=== PATIENT | female | born 1970 | race Caucasian/White ===

== ENCOUNTER 2024-02-09 08:22 | Outpatient (OUT) | payer OTHER, SELFPAY ==
--- NOTE | 2024-02-09 08:25 | MM_ITS ---
Patient Name: CHYNA ASENCIO MR#: [id number] : 1970 Exam Date: 02/09/2024 Ordering Doctor: Shaikh Mahi Roger . RADIOLOGY REPORT PROCEDURE: MM TOMOSYNTHESIS SCREENING BI COMPARISON: MG MAMM SCREEN 3D PAGE CAD, 11/15/2021. MG MAMM SCREEN 3D PAGE CAD, 12/02/2022. INDICATIONS: Screening Calculator Name NCI Breast Cancer Risk Assessment Tool 5 Year Breast Cancer Risk 0.80% Lifetime Breast Cancer Risk 6.90% Personal Breast Cancer No Personal Ovarian Cancer No Treatments None Family Cancers Grandmother-maternal with breast cancer at age ~50; Grandfather-paternal with lung cancer at age ~60. LOCATION: [facility] BREAST COMPOSITION: The breasts are extremely dense, which lowers the sensitivity of mammography. FINDINGS: DIAGNOSTIC CATEGORY 2--BENIGN FINDING. NO CHANGE FROM COMPARISON. Scattered benign-appearing calcifications are present. Scattered benign-appearing lymph nodes are present. RIGHT BREAST: No significant suspicious finding. Linear scar marker upper outer quadrant LEFT BREAST: No significant suspicious finding. RECOMMENDATIONS: ROUTINE MAMMOGRAM AND CLINICAL EVALUATION IN 12 MONTHS. PLEASE NOTE: A NORMAL MAMMOGRAM DOES NOT EXCLUDE THE POSSIBILITY OF BREAST CANCER. A CLINICALLY SUSPICIOUS PALPABLE LUMP SHOULD BE BIOPSIED. Dictated by: Joseph Couch MD on 02/09/2024 at 12:53 Approved by: Joseph Couch MD on 02/09/2024 at 12:54
== END 2024-02-09 08:23 | disposition home or self-care (01) ==
LOC: MAMMO 08:22
PROVIDERS: PCP Internal Medicine; Visit Provider Internal Medicine
DX: Z12.31 Encounter for screening mammogram for malignant neoplasm of breast (principal); Z80.3 Family history of malignant neoplasm of breast; Z80.1 Family history of malignant neoplasm of trachea, bronchus and lung
CPT/HCPCS: 77063; 77067

== ENCOUNTER 2024-03-06 08:10 | Outpatient (OUT) | payer OTHER, SELFPAY ==
[2024-03-06 08:37] LABS: Basophils Absolute Auto 0.1 10^3/uL (0.0-0.1); Basophils Percent Auto 1.5 % (0.2-2.0); Eosinophils Absolute Auto 0.3 10^3/uL (0.0-0.7); Eosinophils Percent Auto 5.3 % (0.9-7.0); Hematocrit 40.6 % (36.0-48.0); Hemoglobin 13.5 g/dL (12.0-16.0); Immature Granulocytes Abs Auto 0.01 10^3/uL (0.00-0.03); Immature Granulocytes Pct Auto 0.2 % (0.0-0.5); Lymphocytes Absolute Auto 2.1 10^3/uL (1.2-3.8); Lymphocytes Percent Auto 35.4 % (20.5-60.0); Mean Corpuscular HGB Conc 33.3 g/dL (29.9-35.2); Mean Corpuscular Volume 93.1 fL (81.0-99.0); Mean Platelet Volume 9.6 fL (9.5-13.5); Monocytes Absolute Auto 0.4 10^3/uL (0.3-0.8); Neutrophils Absolute Auto 3.1 10^3/uL (1.4-6.5); Neutrophils Percent Auto 50.6 % (43.0-75.0); Platelet Count 383 10^3/uL (150-450); Red Blood Count 4.36 10^6/uL (4.20-5.40); Red Cell Distribution Width 13.2 % (11.0-15.0)
[2024-03-06 09:14] LABS: Alanine Aminotransferase 22 U/L (14-59); Albumin Globulin Ratio 1.4; Albumin Level 4.2 g/dL (3.4-5.0); Alkaline Phosphatase 91 U/L (46-116); Anion Gap 13.3; Aspartate Amino Transferase 12 U/L (15-37); BUN Creatinine Ratio 26.4; Bilirubin Total 0.5 mg/dL (0.2-1.0); Calcium 9.1 mg/dL (8.5-10.1); Carbon Dioxide 26.9 mmol/L (21.0-32.0); Chloride 104 mmol/L (98-107); Cholesterol 184 mg/dL (<=200); Estimated GFR (African America >60 (>=60); Estimated GFR (Non-African Ame >60 (>=60); Globulin 2.9 g/dL; Glucose 110 mg/dL (74-106); HDL Cholesterol 92 mg/dL (40-60); Potassium 4.2 mmol/L (3.5-5.1); Sodium 140 mmol/L (136-145); Thyroid Stimulating Hormone 1.194 uIU/mL (0.358-3.740); Total Protein 7.1 g/dL (6.4-8.2); Triglycerides 51 mg/dL (<=150); VLDL CHOLESTEROL 10.2 mg/dL
== END 2024-03-06 08:11 | disposition home or self-care (01) ==
LOC: LAB 08:12
PROVIDERS: PCP Family Medicine; Visit Provider Family Medicine
DX: Z00.00 Encounter for general adult medical examination without abnormal findings (principal)
CPT/HCPCS: 36415; 80053; 80061; 84443; 85025

== ENCOUNTER 2025-02-21 09:56 | Outpatient (OUT) | payer BC, SELFPAY ==
--- OUTSIDE RECORDS SUMMARY | 2025-02-21 10:13 | XMS_ITS | CCD ---
Author Organization [facility] Care Team Providers Care Harnessmaker Name Role Phone SKYLER Mike Attending Provider Denise Mike Attending Unavailable Denise Mike Admitting Unavailable Fawwad, Aggarwal Primary Care Unavailable DR IZAIAH DOWD Consulting Unavailable FAWWAD, AGGARWAL H Admitting Unavailable FAWWAD, AGGARWAL H Primary Care Unavailable FAWWAD, AGGARWAL H Attending Unavailable FAWWAD, AGGARWAL H Consulting Unavailable FAWWAD, AGGARWAL H Attending Unavailable FAWWAD, AGGARWAL H Admitting Unavailable FAWWAD, AGGARWAL H Primary Care Unavailable FAWWAD, AGGARWAL H Consulting Unavailable FAWWAD, AGGARWAL H Admitting Unavailable FAWWAD, AGGARWAL H Primary Care Unavailable FAWWAD, AGGARWAL H Attending Unavailable FAWWAD, AGGARWAL H Admitting Unavailable FAWWAD, AGGARWAL H Primary Care Unavailable FAWWAD, AGGARWAL H Attending Unavailable DEMARCO SOOD Attending Unavailable WARNER MORALES Referring Unavailable MORALESWARNER Attending Unavailable KRUPA BATISTA Attending Unavailable MORALES, WARNER T Referring Unavailable KRUPA BATISTA Attending Unavailable MORALES, WARNER T Referring Unavailable ZHANNA GRAJEDA Attending Unavailable MORALES, WARNER T Referring Unavailable ZHANNA GRAJEDA Attending Unavailable MORALES, WARNER T Referring Unavailable MICAH CONN Attending Unavailable MORALES, WARNER T Referring Unavailable MORALES, WARNER T Attending Unavailable MORALES, WARNER T Attending Unavailable SAMANTHA JUSTIN Attending Unavailable CARMEN, WARNER T Referring Unavailable SAMANTHA JUSTIN Attending Unavailable MORALES, WARNER T Referring Unavailable CAR FARRIS Attending Unavailable SAMANTHA JUSTIN Attending Unavailable MORALES, WARNER T Referring Unavailable ZHANNA GRAJEDA Attending Unavailable WARNER MORALES Referring Unavailable Allergies Allergy Classification Reported Allergen(s) Allergy Type Date of Onset Reaction(s) Facility (3 sources) Albuterol Drug Allergy 4 Unknown, [facility] (1 source) Penicillin V Drug Allergy Unknown [employer] Other (1 source) Albuterol Drug Allergy 2 [facility] (2 sources) Penicillins Allergy to substance 4 [facility] Medications Current Medications Medication Drug Class(es) Dates Sig (Normalized) Sig (Original) fluticasone propionate 0.05 mg/actuat metered dose nasal spray (6 sources) Corticosteroid Start: 02-28-2024 End: 02-29-2024 take 1 spray(s) nasal route once daily Fluticasone Propionate (Flonase Allergy Relief) 50 mcg/actuation spray,suspension Active 1 SPRAY INTRANASAL Daily February 28, 2024 12:00am administer into each nostril Fluticasone Prop ionate Active Flonase Active Fluticasone Propionate (Flovent Hfa) 220 mcg/actuation HFA aerosol inhaler (1 source) Start: 10-22-2024 take 1 puff(s) by inhalation twice daily Fluticasone Propionate (Flovent Hfa) 220 mcg/actuation HFA aerosol inhaler Active 1 PUFF INHALATION Twice daily October 22, 2024 12:00am 200 actuat ipratropium bromide 0.017 mg/actuat metered dose inhaler (1 source) Anticholinergic Start: 10-22-2024 take 1 puff(s) by inhalation every eight hours Ipratropium Keller (Atrovent Hfa) 17 mcg/actuation HFA aerosol inhaler Active 2 PUFF INHALATION Every 8 hours October 22, 2024 12:00am loratadine 10 mg oral tablet (3 sources) Start: 02-28-2024 take 1 tablet by mouth once daily Loratadine (Claritin) 10 mg tablet Active 10 MG PO Daily February 28, 2024 12:00am Claritin Active sulfamethoxazole 800 mg / trimethoprim 160 mg oral tablet (1 source) Dihydrofolate Reductase Inhibitor Antibacterial, Sulfonamide Antimicrobial Start: 10-22-2024 take 1 tablet by mouth twice daily Sulfamethoxazole-Trimethoprim 800-160 mg tablet Active 1 TAB PO Twice daily October 22, 2024 12:00am Completed/Discontinued Medications Medication Drug Class(es) Dates Sig (Normalized) Sig (Original) Toradol 30 mg/ml (1 source) Start: 06-27-2022 Toradol 30 mg/ml May, 60 mg Problems Problem Classification Problem Date Documented Date Episodic/Chronic Abdominal pain (1 source) Right lower quadrant pain Episodic Asthma (4 sources) Exercise induced bronchospasm; Translations: [EXERCISE INDUCED BRONCHOSPASM] Onset: 12-09-2021 Chronic Genitourinary symptoms and ill-defined conditions (3 sources) Dysuria; Translations: [Dysuria] Onset: 06-27-2022 Episodic Menopausal disorders (3 sources) Disorder associated with menstruation AND/OR menopause; Translations: [Unspecified menopausal and perimenopausal disorder] 02-29-2024 Chronic Other non-traumatic joint disorders (5 sources) Pain in left shoulder; Translations: [PAIN IN LEFT SHOULDER] Onset: 12-05-2022 Episodic Other screening for suspected conditions (not mental disorders or infectious disease) (7 sources) Encounter for screening mammogram for malignant neoplasm of breast; Translations: [Patient encounter status] Onset: 12-02-2022 Episodic Residual codes; unclassified (1 source) Family history of malignant neoplasm of breast; Translations: [FAMILY HX MALIG NEOPLASM OF BREAST] Onset: 12-08-2022 Episodic Residual codes; unclassified (1 source) Family history of malignant neoplasm of trachea, bronchus and lung; Translations: [FAM HX MALIG NEOPLSM TRACH BRON LNG] Onset: 12-08-2022 Episodic Results Test Name Value Interpretation Reference Range Facil ity MG MAMM SCREEN 3D PAGE CADon 12-02-2022 MG MAMM SCREEN 3D PAGE CAD Patient: RAINE ASENCIO Exam Date: 12/02/2022 : 1970 Gender:F Ordering : SHAIKH Mahi DELGADILLO . Admission #: [id number] Family : Order #: [id number] CLICK HERE TO VIEW EXAM RADIOLOGY REPORT PROCEDURE: MAMMOGRAM SCREENING 3D BILATERAL CAD COMPARISON: MG MAMM SCREEN 3D PAGE CAD, 11/15/2021. MG BREAST LOCAL MAMM GUIDE RT, 10/10/2019. MG STEREO CORE NDL W CLIP RT, 07/12/2019. MG MAMM PAGE DIAG W CAD, 06/25/2019. INDICATIONS: Screening mammography Calculator Name NCI Breast Cancer Risk Assessment Tool 5 Year Breast Cancer Risk 0.70% Lifetime Breast Cancer Risk 7.00% Personal Breast Cancer No Personal Ovarian Cancer No Treatments None Family Cancers Grandmother-matern al with breast cancer at age 50; Grandfather-patern al with lung cancer at age 60. LOCATION: [facility] BREAST COMPOSITION: Extremely dense, which lowers the sensitivity of mammography. FINDINGS: DIAGNOSTIC CATEGORY 2--BENIGN FINDING: RIGHT BREAST: No significant suspicious finding. Scattered benign-appearing calcifications are present. No significant change has occurred. LEFT BREAST: No significant suspicious finding. Scattered benign-appearing calcifications are present. Scattered benign-appearing lymph nodes are present. No significant change has occurred. RECOMMENDATIONS: ROUTINE MAMMOGRAM AND CLINICAL EVALUATION IN 12 MONTHS. PLEASE NOTE: A NORMAL MAMMOGRAM DOES NOT EXCLUDE THE POSSIBILITY OF BREAST CANCER. A CLINICALLY SUSPICIOUS PALPABLE LUMP SHOULD BE BIOPSIED. Dictated by: Izaiah Dowd M.D. on 12/05/2022 at 11:51 Approved by: Izaiah Dowd M.D. on 12/05/2022 at 11:56 Normal [facility] Urinalysis - AUTOMATEDon Appearance (U) clear [employer] Other Bilirubin Ql (U) Negative [employer] Other Color (U) yellow [employer] Other Glucose Ql (U) Negative [employer] Other Hemoglobin Ql (U) Negative [employer] Other Ketones Ql (U) Negative [employer] Other Leukocyte esterase Test strip Ql (U) Negative [employer] Other Nitrite Ql (U) Negative [employer] Other pH (U) 6.0 [pH] [employer] Other Protein Ql (U) Negative [employer] Other Specific gravity (U) [Rel density] 1.010 [facility] [facility] [employer] Other Urobilinogen (U) [Mass/Vol] 0.2 mg/dL [employer] Other Urinalysis - AUTOMATED [employer] [facility] [employer] Other Urine Cultureon 06-27-2022 Bacteria identified Cx Nom (U) Reason for Exam Dysuria Urine No Growth 2 Days PERFORMED BY: [place] [address] PATHOLOGIST [employer]WR[employer] GRACE FRIEDMAN M.D. Normal [facility] Comment on above: Performed By: #### C UU #### [address] Vital Signs Date Time Vital Sign Value Performing Clinician Facility 10-22-2024 09:48-0400 Body height 163.83 cm [facility] 10-22-2024 09:48-0400 Body mass index (BMI) [Ratio] 24.5 kg/m2 [facility] 10-22-2024 09:48-0400 Body temperature 98.3 [degF] [place] 10-22-2024 09:48-0400 Body weight 65.77 kg [facility] 10-22-2024 09:48-0400 Diastolic blood pressure 73 mm[Hg] [facility] 10-22-2024 09:48-0400 Heart rate 79 /min [facility] 10-22-2024 09:48-0400 Systolic blood pressure 119 mm[Hg] [facility] 02-29-2024 08:31-0400 Body height 163.83 cm [facility] 02-29-2024 08:31-0400 Body mass index (BMI) [Ratio] 24.1 kg/m2 [facility] 02-29-2024 08:31-0400 Body weight 64.86 kg [facility] 02-29-2024 08:31-0400 Diastolic blood pressure 75 mm[Hg] [facility] 02-29-2024 08:31-0400 Heart rate 66 /min [facility] 02-29-2024 08:31-0400 Systolic blood pressure 115 mm[Hg] [facility] 06-27-2022 10:15-0500 Body height 162.56 cm Denise Mike Other [employer] Other 06-27-2022 10:15-0500 Body mass index (BMI) [Ratio] 23.17 kg/m2 Denise Sortoault Other [employer] Other 06-27-2022 10:15-0500 Body temperature 97.8 [degF] Denise Sortoault Other [employer] Other 06-27-2022 10:15-0500 Body weight 61.24 kg Denise Sortoault Other [employer] Other 06-27-2022 10:15-0500 Diastolic blood pressure 61 mm[Hg] Denise Sortoault Other [employer] Other 06-27-2022 10:15-0500 Respiratory rate 18 /min Denise Sortoault Other [employer] Other 06-27-2022 10:15-0500 SaO2% (BldA) [Mass fraction] 98 % Denise Sortoault Other [employer] Other 06-27-2022 10:15-0500 Systolic blood pressure 112 mm[Hg] Denise Sortoault Other [employer] Other Encounters Encounter Date Encounter Type Care Provider Facility Start: 10-22-2024 End: 10-22-2024 ambulatory [facility] Work Phone: Start: 10-22-2024 End: 10-22-2024 Patient encounter procedure [facility] Work Phone: Start: 03-06-2024 End: 03-06-2024 ambulatory CAR FARRIS Not Available Start: 02-29-2024 Patient encounter status [facility] Start: 02-29-2024 End: 02-29-2024 ambulatory [facility] Work Phone: Start: 02-29-2024 End: 02-29-2024 Patient encounter procedure [facility] Work Phone: Start: 10-03-2023 End: 10-03-2023 ambulatory WARNER MORALES Not Available Start: 08-28-2023 End: 08-28-2023 ambulatory MICAH CONN Not Available Start: 2023 End: 2023 ambulatory ZHANNA GRAJEDA Not Available Start: 08-15-2023 End: 08-15-2023 ambulatory KRUPA CUNHADANIELY Not Available Start: 08-08-2023 End: 08-08-2023 ambulatory KRUPA GUERLINEBLEY Not Available Start: 08-02-2023 End: 08-02-2023 ambulatory WARNER MORALES Not Available Start: 08-01-2023 End: 08-01-2023 ambulatory DEMARCO SOOD Not Available Start: 07-17-2023 End: 07-17-2023 ambulatory ZHANNA GRAJEDA Not Available Start: 07-10-2023 End: 07-10-2023 ambulatory SAMANTHA BRINK Not Available Start: 07-03-2023 End: 07-03-2023 ambulatory SAMANTHA BRINK Not Available Start: 06-26-2023 End: 06-26-2023 ambulatory SAMANTHA BRINK Not Available Start: 06-26-2023 End: 06-26-2023 ambulatory WARNER MORALES Not Available Start: 06-15-2023 End: 06-15-2023 ambulatory ZHANNA NICCI Not Available Start: 12-14-2022 ambulatory SHAIKH Luis Gonzalez y:H1 Start: 12-05-2022 ambulatory SHAIKH Luis Gonzalez y:[facility]1 Start: 12-02-2022 End: 12-03-[address] IZAIAH DOWD Facility:[facility] Start: 06-27-2022 Office outpatient ne w 20 minutes Denise Mike [facility] Start: 06-27-2022 End: 06-27-2022 ambulatory Denise Mike Facility:[facility] Start: 06-27-2022 End: 06-27-2022 ambulatory [employer] Denise Mike Work Phone: [facility] Work Phone: Start: 06-27-2022 End: 06-27-2022 Departed Referred [employer]CHIT[employer]URE [employer] Denise Mike Work Phone: [facility] [place] Start: 12-09-2021 End: 12-10-2021 ambulatory SHAIKH Luis DELGADILLO Facility:[facility]1 Plan of Treatment Date Care Activity Detail Author Start: 02-29-2024 Patient referral [facility] Work Phone: Bacteria identified in Urine by Culture [facility] Comprehensive metabo lic 2000 panel - Serum or Plasma [facility] Patient referral [facility] Work Phone: [place] Payers Date Payer Category Payer Self-pay 1970 Unknown [id number] 1970 Unknown [id number] 1970 Unknown [id number] [id number] 1970 Unknown [id number] 2..[id number] 1970 Unknown [id number] 2.16.840.1.306725.3.579.2.125 9 1972 Unknown [id number] 2.16.840.1.776102.3.579.2.125 9 1972 Unknown [id number] 2.16.840.1.159221.3.579.2.125 9 1972 Unknown [id number] 2.16.840.1.383226.3.579.2.125 9 1972 Unknown [id number] 2.16.840.1.022255.3.579.2.125 9 1972 Unknown [id number] 2.16.840.1.120499.3.579.2.125 9 1972 Unknown [id number] 2.16.840.1.584857.3.579.2.125 9 1972 Unknown [id number] 2.16.840.1.756372.3.579.2.125 9 1972 Unknown [id number] 2.16.840.1.046592.3.579.2.125 9 1972 Unknown [id number] 2.16.840.1.113400.3.579.2.125 1972 Unknown [id number] 2.16.840.1.099631.3.579.2.125 9 1972 Unknown [id number] 2.16.840.1.449797.3.579.2.125 1972 Unknown [id number] 2.16.840.1.398068.3.579.2.125 1972 Unknown [id number] 2.16.840.1.506123.3.579.2.125 9 1957 Blue Cross Blue [facility] [id number] [id number] Private Health Insurance [facility] [id number] Unknown [id number] 2.16.840.1.568986.3.579.2.531 Unknown [place] BC/BS [id number] Social History Date Type Detail Facility Tobacco smoking status NHIS Unknown if ever smoked [facility] Work Phone: Start: 1970 Sex Assigned At Female [facility] Sex Assigned At Sex Assigned At [employer] [facility] [employer] Other Tobacco smoking status NHIS Unknown if ever smoked [facility] Work Phone: Start: 10-22-2024 Sex Female (finding) [facility] NEGATED: Highlighted row [facility] Clinical Note 12-02-2022 Note Date & Type Note Facility 12-02-2022 Note PROCEDURE: XR SHOULD ER LT 2V or > HISTORY: Pain of left shoulder joint , acute; no known injury COMPARISON: None. FINDINGS: BONES:Degenerative osteophyte projecting laterally from the inferior lateral margin of the acromion process, uncertain clinical significance. Borderline widening of the acromioclavicular joint, 8.5 mm. Unremarkable glenoid, glenohumeral joint, and humeral head. SOFT TISSUES:No visible soft tissue swelling. EFFUSION:None visible. OTHER: Negative. IMPRESSION: 1. Borderline widening of the acromioclavicular joint which may be secondary to prior sprain. 2. Small degenerative osteophyte along inferior lateral margin of the acromion process which may contribute to a rotator cuff injury. Electronically authenticated by: IZAIAH DOWD Date: 2022-12-02 11:05 [facility] Evaluation note 06-27-2022 Note Date & Type Note Facility 06-27-2022 Evaluation note Encounter Date Diagnosis Assessment Notes May, Dysuria (ICD-10 - R30.0) Sending urine out for culture will call with results May, RLQ abdominal pain (ICD-10 - R10.31) Recommend patient contact gynecology teacher for follow up due to concerns and history of ovarian cysts. [employer] Other Evaluation note Note Date & Type Note Facility Evaluation note No assessment information availa ble [facility] Work Phone: Evaluation note Note Date & Type Note Facility Evaluation note Diagnosis Onset Date Menopausal and perimenopausal disorder acute Screening for colon cancer a cute [facility] Work Phone: History general Narrative - Reported Note Date & Type Note Facility History general Narrative - Reported Type Medical History degenerative disc Surgical History hysterectomy Surgical History left shoulder Surgical History hemorrhoidectomy x2 Surgical History Surgical History tonsillectomy Hospitalization History see above [employer] Other Hospital Discharge instructions Note Date & Type Note Facility Hospital Discharge instructions Ambulatory OrdersReferral to TEMPLATE WORKER Time Frame: 02/29/24, Location: None Selected [facility] Work Phone: Chief Complaint and Reason for Visit Chief Complaint Dysuria Chief Complaint new patient establis h care Reason for Visit Menopausal and perim enopausal disorder Screening for colon cancer Chief Complaint Admit Date sinus infection October 22, 2024 9:4 5am Summary Purpose Family History Relationship Condition Age at Onset Recorded Date/T lucinda father Hypertension Unknown Unknown mother Hypertension Unknown History of stroke Unknown Advance Directives Advance Directive Response Recorded Date/ Time Advance Directives No May 7:50am Additional Source Comments Care Teams (unrecognized sec tion and content) Team Status: Inactive Member Role Status Dates SKYLER Deluca Attending Provider Active Team Status: Active Member Role Status Dates Shaikh Acacia MD Primary Care Provider Active Team Status: Inactive Member Role Status Dates Shaikh Acacia MD Primary Care Provider Active Start: February 29, 2024 End: February 29, 2024 Netta Kelley MD Attending Provider Active St art: February 29, 2024 End: February 29, 2024 Team Status: Active Member Role Status Dates Netta Kelley MD Primary Care Provider Active Team Status: Inactive Member Role Status Dates Netta Kelley MD Primary Care Provide r, Attending Provider Active Start: October 22, 2024 End: October 22, 2024 Goals (unrecognized section and content) Goals may be documented in a n alternate sectionNo InformationGoals may be documented in an alternate sectionGoals may be documented in an alternate section REASON FOR VISIT (unrecogniz ed section and content) DYSURIA INFORMATION SOURCE (unrecogn ized section and content) DATE CREATED AUTHOR 06/29/2022 [facility] DATE CREATED AUTHOR AUTHOR'S ORGANIZ ATION 12/08/2022 [facility] pitia DATE CREATED AUTHOR AUTHOR'S ORGANIZ ATION 03/08/2024 [facility] FOR RECORDS PERTAINING TO PATIENTS WHO ARE OR HAVE BEEN ENROLLED IN A CHEMICAL DEPENDENCY/SUBSTANCEABUSE PROGRAM, SOME INFORMATION MAY BE OMITTED. This clinical summary was aggregated from multiple sources. Caution should be exercised in using it in the provision of clinical care. This summary normalizes information from multiple sources, and as a consequence, information in this document may materially change the coding, format and clinical context of patient data. In addition, data may be omitted in some cases. CLINICAL DECISIONS SHOULD BE BASED ON THE PRIMARY CLINICAL RECORDS. [employer] [facility]. provides no warranty or guarantee of the accuracy or completeness of information in this document.
--- NOTE | 2025-02-21 10:40 | MM_ITS ---
Patient Name: CHYNA ASENCIO MR#: [id number] : 1970 Exam Date: 02/21/2025 Ordering Doctor: DR YASMIN ENRIQUEZ M.D. RADIOLOGY REPORT PROCEDURE: MM TOMOSYNTHESIS SCREENING BI COMPARISON: MM TOMOSYNTHESIS SCREENING BI, 02/09/2024. MG MAMM SCREEN 3D PAGE CAD, 12/02/2022. MG MAMM SCREEN 3D PAGE CAD, 11/15/2021. MG MAMM PAGE DIAG W CAD, 06/25/2019. INDICATIONS: Screening Calculator Name NCI Breast Cancer Risk Assessment Tool 5 Year Breast Cancer Risk 0.80% Lifetime Breast Cancer Risk 6.80% Personal Breast Cancer No Personal Ovarian Cancer No Treatments None Family Cancers Grandmother-maternal with breast cancer at age ~50; Grandfather-paternal with lung cancer at age ~60; Aunt-maternal with breast cancer at age 50; Cousin-maternal with breast cancer at age 50; Father with multiple cancer at age 68. LOCATION: [facility] BREAST COMPOSITION: The breasts are heterogeneously dense, which may obscure small masses. FINDINGS: RIGHT BREAST: No significant suspicious finding. LEFT BREAST: No significant suspicious finding. DIAGNOSTIC CATEGORY 1--NEGATIVE. RECOMMENDATIONS: ROUTINE MAMMOGRAM AND CLINICAL EVALUATION IN 12 MONTHS. PLEASE NOTE: A NORMAL MAMMOGRAM DOES NOT EXCLUDE THE POSSIBILITY OF BREAST CANCER. A CLINICALLY SUSPICIOUS PALPABLE LUMP SHOULD BE BIOPSIED. Dictated by: Dominic Monterroso MD on 02/21/2025 at 14:35 Approved by: Dominic Monterroso MD on 02/21/2025 at 15:00
== END 2025-02-21 09:57 | disposition home or self-care (01) ==
LOC: MAMMO 09:58
PROVIDERS: PCP Family Medicine; Visit Provider Family Medicine
DX: Z12.31 Encounter for screening mammogram for malignant neoplasm of breast (principal); Z80.3 Family history of malignant neoplasm of breast; Z80.1 Family history of malignant neoplasm of trachea, bronchus and lung; Z80.8 Family history of malignant neoplasm of other organs or systems
CPT/HCPCS: 77063; 77067

== ENCOUNTER 2025-05-16 07:57 | Outpatient (OUT) | payer BC, SELFPAY ==
--- OUTSIDE RECORDS SUMMARY | 2025-05-14 08:19 | XMS_ITS | Continuity of Care Document ---
Author Organization [facility] Address [address] [place] [address] Phone Care Team Providers Care Live In Companion Name Role Phone Netta Kelley MD Primary Care Provider Netta Kelley MD Attending Provider [phone] Care Teams Patient Care Team Team Status: Active Member Role Status Dates Netta Kelley MD Primary Care Provider Active Visit Care Team Team Status: Inactive Member Role Status Dates Netta Kelley MD Primary Care Provider Active Start: April 08, 2025 End: April 08, 2025 Netta Kelley MD Attending Provider Active St art: April 08, 2025 End: April 08, 2025 Patient Care Team Team Status: Inactive Member Role Status Dates Netta Kelley MD Primary Care Provider Active Start: May 14, 2025 End: May 14, 2025 Netta Kelley MD Attending Provider Active St art: May 14, 2025 End: May 14, 2025 Patient Care Team Team Status: Active Member Role Status Dates Netta Kelley MD Primary Care Provider Active Start: May 14, 2025 Netta Kelley MD Attending Provider Active St art: May 14, 2025 Chief Complaint and Reason for Visit Chief Complaint Admit Date Headaches April 08, 2025 10:13am BP Issues May 14, 2025 1 0:54am Reason for Visit Admit Date Migraines April 08, 2025 10:13am Elevated blood pressure reading May 14, 2025 10:54am Fatigue May 14, 2025 1 0:54am Headache May 14, 2025 1 0:54am Allergies, Adverse Reactions, Alerts Allergen Type Severity Reaction Last Updated Verified Status albuterol Allergy Unknown Hives May 14, 2025 11:24am Yes Active Penicillins Allergy Unknown Hives May 14, 2025 11:24am Y es Active Social History Smoking Status Unknown if ever smoked Observation Status Observation Response Date of Response Legal Sex Female (finding) Sex Assigned At Female [birth year] Family History Relationship Condition Age at Onset Recorded Date/T lucinda father Hypertension Unknown Unknown mother Hypertension Unknown History of stroke Unknown Problems Active Problems Medical Problem Onset Date Status Screening for colon cancer Unknown Activ e Menopausal and perimenopausal disorder Unknown Active Elevated blood pressure reading Unknown Active Sinusitis, acute maxillary Unknown Activ e Fatigue Unknown Active Wellness examination Unknown Active Headache Unknown Active Migraines Unknown Active Cervical pain (neck) Unknown Active Medications Medication Status Dose Units Route Directions Qty Days St art Date Stop Date End Date Instructions Adherence Ipratropium [place] (Atrovent Hfa) 17 mcg/actuati on HFA aerosol inhaler Active 2 PUFF INHALA TION Every 8 hours October 22, 2024 12:00a m Unknown Fluticasone Propionate (Flovent Hfa) 220 mcg/actuati on HFA aerosol inhaler Active 1 PUFF INHALA TION Twice daily October 22, 2024 12:00a m Unknown Sulfamethox azole-Trime thoprim 800-160 mg tablet Discont inued 1 TAB PO Twice daily October 22, 2024 12:00a m [facility] 2024 10:19 am Butalbital- Acetaminoph en-Caff (Fioricet) 50-300-40 mg capsule Discont inued 1 CAP PO Every 8 hours as needed 2024 12:00a m [facility] 2024 10:55 am Butalbital- Acetaminoph en-Caff (Fioricet) 50-300-40 mg capsule Active 1 CAP PO Every 8 hours as needed for pain 2024 10:53a m Unknown Fluticasone Propionate (Flonase Allergy Relief) 50 mcg/actuati on spray,suspe nsion Active 1 SPRAY INTRAN ADRIA Daily February 28, 2024 12:00a m administer into each nostril Unknown Loratadine (Claritin) 10 mg tablet Active 10 MG PO Daily February 28, 2024 12:00a m Unknown Fluticasone Propionate (Allergy Relief (Fluticason e)) 50 mcg/actuati on spray,suspe nsion Discont inued 1 SPRAY INTRAN ADRIA Daily February 28, 2024 12:00a m Augus t 2023 8:36a m administer into each nostril Vital Signs Vital Reading Result Reference Range Collection Date/Time Height 64.5 [in_i] April 08, 2025 10:16am Weight 66.22 kg April 08, 2025 10:16am Heart Rate 73 /min 60-100 April 08, 2025 10:16am BP Systolic 137 mm[Hg] 100-140 April 08, 2025 10:16am BP Diastolic 71 mm[Hg] 60-100 April 08, 2025 10:16am BMI (Body Mass Index) 24.6 kg/m2 2024 10:16am Height 64.5 [in_i] May 14, 025 11:24am Weight 67.35 kg May 14, 025 11:24am Heart Rate 60 /min 60-100 May 14, 2 025 11:29am BP Systolic 153 mm[Hg] 100-140 May 14, 2 025 11:29am BP Diastolic 78 mm[Hg] 60-100 May 14, 2 025 11:29am BMI (Body Mass Index) 25.0 kg/m2 Octobe r 2024 11:24am Advance Directives Advance Directive Response Recorded Date/ Time Advance Directives No March 11:10am Insurance Providers Guarantor Raine Dockery Address [address] [place] [id number] Contact Info. Home Phone: Payer Policy Id Subscriber's Name Subscriber Id Effective Date Expiration Date Sammy STEELE/ROD [id number] Raine L Palm [id number] [employer] Claims [id number] Raine L Palm [id number] Encounters Encounter Location(s) Arrival/Admit Date Discharge/Depart Date Provider(s) Departed Physician/Provi ac Office Visit -[facility] April 08, 2025 10:13am April 08, 2025 10:55am Netta Kelley MD Departed Physician/Provi ac Office Visit -[facility] May 14, 2025 10:54am May 14, 2025 12:18pm eNtta Kelley MD Registered Clinical -EKG [facility] May 14, 2025 12:10pm Netta Kelley MD Recent Diagnosis Onset Date Admit Date Migraines Unknown April 08, 10:13am Elevated blood pressure reading Unknown May 14, 2025 10:54am Fatigue Unknown May 14 10:54am Headache Unknown May 14 10:54am Assessments Diagnosis Onset Date Resolution Status Admit Date Migraines acute April 08, 2025 10:13am Elevated blood pressure reading acute May 14 10:54am Fatigue acute May 14, 2025 10:54am Headache acute May 14, 2025 10:54am Plan of Treatment Author Netta Kelley [facility] Authored April 14, 2025 1:03pm Pt states Fioricet always wo rks for her migraines, We discussed that there are other medications. She denies adverse side effects w the Fioricet. Refilled for short term. Also sampled Nurtec and she will call if that is more effective. Discussed stress is triggering muscle spasms in neck, and then triggering a migraine. She will try home neck stretching exercises. Future Tests Future scheduled test information is unavailable Pending Tests Test Name Ordered Date Scheduled Date Comprehensive Metabolic Panel May 14, 2025 12:12pm Future Visits Future appointment information is unavailable Referrals to Other Providers Referral information is unavailable Future Procedures Procedure Name Ordered Date Scheduled Date Complete Blood Count Auto Diff May 14 12:12pm FPG ECG *PCP OFFICE ONLY* May 14, 2025 12: 10pm May 14, 2025 12:10pm Metanephrines, Frac, Pl, Free May 14, 2025 12:12pm MicroAlb Creat Ratio,U May 14, 2025 12:12p m Thyroid Stimulating Hormone May 14, 2025 1 2:12pm Future Medications Future medication information is unavailable Patient Instructions Patient instructions are unavailable
--- OUTSIDE RECORDS SUMMARY | 2025-05-14 13:03 | XMS_ITS | Clinical Summary ---
Author Organization [facility] Address [address], [address] [place] [address] Care Team Providers Care Cake Inspector Name Role Phone Shaikh BRANDON Roger Primary Care Provider [phone] Social History Tobacco Use Types Packs/Day Years Used Date Smoking Tobacco: Never Assessed Comments Unknown Sex and Gender Information Value Date Recorded Sex Assigned at Not on file Legal Sex Female 11:43 AM EST Gender Identity Not on file Sexual Orientation Not on file Plan of Treatment Health Maintenance Due Date Last Done Comments Depression Screen 1984 HIV screen 1987 Hepatitis C screen 1990 DTaP/Tdap/Td vaccine (1 - Tdap) 1991 Hepatitis B vaccine (1 of 3 - 19+ 3-dose series) 1991 Pap smear 1993 Cervical cancer screen 2002 HPV (without or with Pap) 2002 Breast cancer screen 2012 Lipids 2012 Colonoscopy 2017 Colorectal Cancer Screen 2017 FIT/FOBT: Average risk 2017 Fecal-DNA (Cologuard): Average risk 2017 Sigmoidoscopy/CT colonography 2017 Pneumococcal 50+ years Vacci ne (1 of 1 - PCV) 2022 Shingles vaccine (1 of 2) 2022 Flu vaccine (#1) 02/28/2025 COVID-19 Vaccine ( - 2023-2 5 season) 2025 Hepatitis A vaccine Aged Out No longe r eligible based on patient's age to complete this topic Hib vaccine Aged Out No longer eligi ble based on patient's age to complete this topic Meningococcal (ACWY) vaccine Aged Out No longer eligible based on patient's age to complete this topic Meningococcal B vaccine Aged Out No l onger eligible based on patient's age to complete this topic Polio vaccine Aged Out No longer elig ible based on patient's age to complete this topic Insurance BC Care Teams Cake Inspector Relationship Specialty Start Date End Date Shaikh Roger MD PCP - General 12/12/22
--- OUTSIDE RECORDS SUMMARY | 2025-05-14 13:03 | XMS_ITS | Clinical Summary ---
Author Organization [id number] [address] [place] [address] Care Team Providers Care Timber Sizer Operator Name Role Phone Shaikh BRANDON Roger Primary Care Provider [phone] Allergies Active Allergy Reactions Criticality Noted Date Comments Albuterol Itching,Rash Low 06/28/2022 Penicillins Anaphylaxis High 06/28/2022 Medications loratadine (CLARITIN) 10 mg tablet Take 1 tablet (10 mg total) by mouth in the morning. 06/22/2022 Active fluticasone propionate (FLONASE) 50 mcg/actuation nasal spray SPRAY 2 SPRAYS IN EACH NOSTRIL DAILY 06/22/2022 Active FLOVENT HFA 220 mcg/actuation inhaler INHALE 1 PUFF BY MOUTH EVERY 12 HOURS 06/22/2022 Active Family History Medical History Relation Name Comments Cirrhosis Father Lung cancer Father Hypertension Mother Stroke Mother Relation Name Status Comments Father Mother Social History Tobacco Use Types Packs/Day Years Used Date Smoking Tobacco: Every Day Cigarettes Smokeless Tobacco: Never Tobacco Cessation:Ready to Q uit: Not Asked; Counseling Given: Not Answered Alcohol Use Standard Drinks/Week Comments Yes 0 (1 standard drink = 0.6 oz pur e alcohol) OCCASIONAL Comments No Sex and Gender Information Value Date Recorded Sex Assigned at Not on file Legal Sex Female 11:46 AM EST Gender Identity Not on file Sexual Orientation Not on file Last Filed Vital Signs Vital Sign Reading Time Taken Comments Blood Pressure 124/82 06/28/2022 8:32 AM EST Pulse 82 06/28/2022 8:32 AM EST Temperature - - Respiratory Rate 16 06/28/2022 8:32 AM EST Oxygen Saturation - - Inhaled Oxygen Concentration - - Weight 61.7 kg (136 lb) 06/28/2022 8:32 AM EST Height 162.6 cm (5' 4 ) 06/28/2022 8:32 AM EST Body Mass Index 23.34 06/28/2022 8:32 AM EST Plan of Treatment Health Maintenance Due Date Last Done Comments Depression Screening 1984 Tobacco Screening 1984 DTaP,Tdap and Td Vaccines (1 - Tdap) 1991 Zoster (Shingles) Vaccine (1 of 2) 2022 Adult BMI Screening 06/28/2023 06/28/2022 Influenza Vaccine 03/31/2025 Medical Devices Not on file Insurance [employer] Care Teams Timber Sizer Operator Relationship Specialty Start Date End Date Shaikh Roger MD PCP - General Internal Medicine 06/28/22
--- OUTSIDE RECORDS SUMMARY | 2025-05-14 13:03 | XMS_ITS | Encounter Summary ---
Author Organization [facility] Address [address] [place] [address] Care Team Providers Care Tufter Operator Name Role Phone Shaikh BRANDON Roger Primary Care Provider Shaikh BRANDON Roger Primary Care Provider Clement Cooper MD Primary Care Provider [phone] Tanja Haskins TWISTING FRAME OPERATOR Unavailable Shaikh BRANDON Roger Unavailable [phone] Td Matos TWISTING FRAME OPERATOR Unavailable [phone] Encounter Details Date Type Department Care Team (Late st Contact Info) Description 06/30/2023 [facility] [address] [facility] [address] [place] [address] Art Sifuentes, PT Social History Tobacco Use Types Packs/Day Years Used Date Smoking Tobacco: Every Day Cigarettes Smokeless Tobacco: Never Alcohol Use Standard Drinks/Week Comments Yes 0 (1 standard drink = 0.6 oz pur e alcohol) 1-2 DRINKS/WK Comments Unknown Sex and Gender Information Value Date Recorded Sex Assigned at Female 01/24/2023 1:27 PM EDT Legal Sex Female 1:24 PM EDT Gender Identity Female 01/24/2023 1:27 PM EDT Sexual Orientation Not on file COVID-19 Exposure Response Date Recorded In the last 10 days, have yo u been in contact with someone who was confirmed or suspected to have Coronavirus/COVID-19? No / Unsure 06/26/2023 7:50 AM EST documented as of this encounter Plan of Treatment Not on file documented as of this encounter Visit Diagnoses Not on filedocumented in this encounter Care Teams Tufter Operator Relationship Specialty Start Date End Date Shaikh Roger MD PCP - General Internal Medicine 01/02/23 09/27/23 Shaikh Roger MD PCP - General Internal Medicine 09/28/23 02/27/24 Clement Cooper MD PCP - General Family Medicine 02/28/24 Shaikh Roger MD [address] [place] [address] PCP - [place] [employer] 10/29/24 Td Matos NP [address] [place] [address] PCP - [employer] 03/31/25 Tanja Haskins NP Nurse Practitioner Family Medicine 02/28/24 documented as of this encounter
--- OUTSIDE RECORDS SUMMARY | 2025-05-14 13:03 | XMS_ITS | Encounter Summary ---
Author Organization [facility] Address [address] [place] [address] Care Team Providers Care Parking Lot Attendant Name Role Phone Shaikh BRANDON Roger Primary Care Provider [phone] Clement Cooper MD Primary Care Provider [phone] Tanja Haskins CENTRAL OFFICE MECHANIC Unavailable [phone] Shaikh BRANDON Roger Unavailable [phone] Td Matos CENTRAL OFFICE MECHANIC Unavailable [phone] Encounter Details Date Type Department Care Team (Late st Contact Info) Description 02/09/2024 Clinisync Result Encounter [facility] External Department Unsolicited Shaikh Roger MD [address] [place] [address] Social History Tobacco Use Types Packs/Day Years [...] PM EDT Sexual Orientation Not on file documented as of this encounter Plan of Treatment Not on file documented as of this encounter Procedures Procedure Name Priority Date/Time Associated Diagnosis Comments MM TOMOSYNTHESIS SCREENING BI 02/09/2024 12:54 PM EDT documented in this encounter Results * MM TOMOSYNTHESIS SCREENING BI (02/09/2024 12:54 PM EDT) Anatomical Region Laterality Modality Other 02/09/2024 12:5 4 PM EDT Narrative 02/09/2024 12:55 [place] [address] Mammography Report Signed Patient: RAINE ASENCIO MR#: [id number] : 1970 Acct:[id number] Age/Sex: 53 / F ADM Date: 02/09/24 Loc: MAMMO Attending Dr: Shaikh Acacia Bae Ordering Physician: Shaikh Catalino Roger Results: Date of Service: 02/09/24 Follow Up: Procedure(s): MM tomosynthesis screening BI Accession Number(s): [id number] cc: Shaikh Catalino Roger Patient Name: RAINE ASENCIO MR#: [id number] : 1970 Exam Date: 02/09/2024 Ordering Doctor: Shaikh Mahi Roger . RADIOLOGY REPORT PROCEDURE: MM TOMOSYNTHESIS SCREENING BI COMPARISON: MG MAMM SCREEN 3D PAGE CAD, 11/15/2021. MG MAMM SCREEN 3D PAGE CAD, 12/02/2022. INDICATIONS: Screening Calculator Name NCI Breast Cancer Risk Assessment Tool 5 Year Breast Cancer Risk 0.80% Lifetime Breast Cancer Risk 6.90% Personal Breast Cancer No Personal Ovarian Cancer No Treatments None Family Cancers Grandmother-maternal with breast cancer at age 50; Grandfather-paternal with lung cancer at age 60. LOCATION: [facility] BREAST COMPOSITION: The breasts are extremely dense, which lowers the sensitivity of mammography. FINDINGS: DIAGNOSTIC CATEGORY 2--BENIGN FINDING. NO CHANGE FROM COMPARISON. Scattered benign-appearing calcifications are present. Scattered benign-appearing lymph nodes are present. RIGHT BREAST: No significant suspicious finding. Linear scar marker upper outer quadrant LEFT BREAST: No significant suspicious finding. RECOMMENDATIONS: ROUTINE MAMMOGRAM AND CLINICAL EVALUATION IN 12 MONTHS. PLEASE NOTE: A NORMAL MAMMOGRAM DOES NOT EXCLUDE THE POSSIBILITY OF BREAST CANCER. A CLINICALLY SUSPICIOUS PALPABLE LUMP SHOULD BE BIOPSIED. Dictated by: Joseph Couch MD on 02/09/2024 at 12:53 Approved by: Joseph Couch MD on 02/09/2024 at 12:54 Dictated By: Joseph Couch M.D. Signed By: 02/09/24 1255 DD/ 1254 TD/TT: Work Adjustment Instructor: Procedure Note Radiology, Radiologist, MD - 02/09/2024 [facility] [place] [id number] Mammography Report Signed Patient: RAINE ASENCIO LMR#: [id number] : 1970Acct:[id number] Age/Sex: 53 / FADM Date: 02/09/24 Loc: MAMMO Attending Dr: Shaikh Acacia Bae Ordering Physician: Shaikh Catalino RogerResults: Date of Service: 02/09/24Follow Up: Procedure(s): MM tomosynthesis screening BI Accession Number(s): [id number] cc: Shaikh Catalino Roger Patient Name: RAINE ASENCIO MR#: [id number] : 1970 Exam Date: 02/09/2024 Ordering Doctor: Shaikh Mahi Roger . RADIOLOGY REPORT PROCEDURE: MM TOMOSYNTHESIS SCREENING BI COMPARISON: MG MAMM SCREEN 3D PAGE CAD, 11/15/2021. MG MAMM SCREEN 3DBIL CAD, 12/02/2022. INDICATIONS: Screening Calculator Name NCI Breast Cancer Risk Assessment Tool 5 Year Breast Cancer Risk 0.80% Lifetime Breast Cancer Risk 6.90% Personal Breast Cancer No Personal Ovarian Cancer No Treatments None Family Cancers Grandmother-maternal with breast cancer at age 50; Grandfather-paternal with lung cancer at age 60. LOCATION: [facility] BREAST COMPOSITION: The breasts are extremely dense, which lowers the sensitivity of mammography. FINDINGS: DIAGNOSTIC CATEGORY 2--BENIGN FINDING. NO CHANGE FROM COMPARISON. Scattered benign-appearing calcifications are present. Scattered benign-appearing lymph nodes are present. RIGHT BREAST: No significant suspicious finding. Linear scar markerupper outer quadrant LEFT BREAST: No significant suspicious finding. RECOMMENDATIONS: ROUTINE MAMMOGRAM AND CLINICAL EVALUATION IN 12 MONTHS. PLEASE NOTE: A NORMAL MAMMOGRAM DOES NOT EXCLUDE THE POSSIBILITY OFBREAST CANCER. A CLINICALLY SUSPICIOUS PALPABLE LUMP SHOULD BE BIOPSIED. Dictated by: Joseph Couch MD on 02/09/2024 at 12:53 Approved by: Joseph Couch MD on 02/09/2024 at 12:54 Dictated By: Joseph Couch M.D. Signed By:02/09/24 1255 DD/ 1254 TD/TT: Work Adjustment Instructor: us Shaikh Acacia [facility] Final Result documented in this encounter Visit Diagnoses Not on filedocumented in this encounter Care Teams Parking Lot Attendant Relationship Specialty Start Date End Date Shaikh Roger MD PCP - General Internal Medicine 09/28/23 02/27/24 Clement Cooper MD PCP - General Family Medicine 02/28/24 Shaikh Roger MD [address] [place] [address] PCP - [place] [employer] 10/29/24 Td Matos NP [address] [place] [address] PCP - [place] [employer] 03/31/25 Tanja Haskins NP Nurse Practitioner Family Medicine 02/28/24 documented as of this encounter
--- OUTSIDE RECORDS SUMMARY | 2025-05-14 13:03 | XMS_ITS | Encounter Summary ---
Author Organization [facility] Address [address] [place] [address] Care Team Providers Care Aquaculture Worker Name Role Phone Shaikh BRANDON Roger Primary Care Provider [phone] Shaikh BRANDON Roger Primary Care Provider Clement Cooper MD Primary Care Provider [phone] Tanja Haskins NURSE SANE Unavailable Shaikh BRANDON Roger Unavailable [phone] Td Matos NURSE SANE Unavailable [phone] Encounter Details Date Type Department Care Team (Late st Contact Info) Description 07/27/2023 Abstract [facility] [address] [place] [address] Shaikh Roger MD [address] [place] [address] Social History Tobacco Use Types Packs/Day Years [...] on filedocumented in this encounter Care Teams Aquaculture Worker Relationship Specialty Start Date End Date Shaikh Roger MD PCP - General Internal Medicine 01/02/23 09/27/23 Shaikh Roger MD PCP - General Internal Medicine 09/28/23 02/27/24 Clement Cooper MD PCP - General Family Medicine 02/28/24 Shaikh Roger MD [address] [facility] [place] [address] PCP - [place] [employer] 10/29/24 Td Matos NP [address] [place] [address] PCP - [place] [employer] 03/31/25 Tanja Haskins NP Nurse Practitioner Family Medicine 02/28/24 documented as of this encounter
--- OUTSIDE RECORDS SUMMARY | 2025-05-14 13:03 | XMS_ITS | Encounter Summary ---
Author Organization [facility] Address [address], [address] [place] [address] Care Team Providers Care Academic Guidance Specialist Name Role Phone Shaikh BRANDON Roger Primary Care Provider [phone] Reason for Referral * Imaging (Routine) - Closed Specialty Diagnoses / Procedures Referred By Contac t Referred To Contact Radiology Diagnoses Pain of left shoulder joint on movement Procedures MRI SHOULDER LEFT WO CONTRAST Shaikh Roger MD Phone: tel: Referral ID Status Reason Start Date Expiration Date Visits Re quested Visits Authorized [id number] Closed 12/06/2022 01/04/2023 1 1 Encounter Details Date Type Department Care Team (Late st Contact Info) Description 12/09/2022 Transcribe Orders [facility] [address] [place] [address] Shaikh Roger MD [address] [place] [address] Pain of left shoulder joint on movement (Primary Dx) Social History Tobacco Use Types Packs/Day Years Used Date Smoking Tobacco: Never Assessed Comments Unknown Sex and Gender Information Value Date Recorded Sex Assigned at Not on file Legal Sex Female 11:43 AM EST Gender Identity Not on file Sexual Orientation Not on file documented as of this encounter Plan of Treatment Not on file documented as of this encounter Results * MRI SHOULDER LEFT WO CONTRAST (12/19/2022 12:16 PM EDT) Anatomical Region Laterality Modality Shoulder, Chest, Arm Magnetic Re sonance 12/19/2022 1:10 PM EDT Impressions 12/19/2022 1:12 PM EDT Tendinosis and minimal partial-thickness tearing of the interstitial and bursal surface fibers of the distal infraspinatus tendon. Mild associated subacromial bursitis Narrative 12/19/2022 1:12 PM EDT EXAMINATION: MRI OF THE LEFT SHOULDER WITHOUT CONTRAST 12/19/2022 11:45 am TECHNIQUE: Multiplanar multisequence MRI of the left shoulder was performed without the administration of intravenous contrast. COMPARISON: None. HISTORY: ORDERING SYSTEM PROVIDED HISTORY: Pain of left shoulder joint on movement TECHNOLOGIST PROVIDED HISTORY: What is the sedation requirement?->None What reading provider will be dictating this exam?->CRC FINDINGS: ROTATOR CUFF: There is minimal partial-thickness tearing and tendinosis of the interstitial and bursal fibers of the infraspinatus contribution to the conjoined tendon. The supraspinatus, subscapularis and teres minor are intact. There is normal muscular volume and signal BICEPS TENDON: Intact vertical and horizontal portions of the long head of the biceps tendon. LABRUM: The glenoid labrum is intact to the extent that it is visualized. No paralabral cyst. GLENOHUMERAL JOINT: Physiologic amount of joint fluid. No evidence of high-grade cartilage loss. Normal alignment. AC JOINT AND ACROMIOCLAVICULAR ARCH: No significant acromial downsloping or subacromial spur. No significant degenerative changes. Intact acromioclavicular and coracoclavicular ligaments. Minimal subacromial/subdeltoid bursitis. BONE MARROW: No evidence of fracture. Normal marrow signal. OUTLET SPACES: Normal MRI appearance of the quadrilateral space. No significant narrowing of the supraspinatus outlet. Procedure Note Charles Little MD - 12/19/2022 EXAMINATION: MRI OF THE LEFT SHOULDER WITHOUT CONTRAST 12/19/2022 11:45 am TECHNIQUE: Multiplanar multisequence MRI of the left shoulder was performed withoutthe administration of intravenous contrast. COMPARISON: None. HISTORY: ORDERING SYSTEM PROVIDED HISTORY: Pain of left shoulder joint onmovement TECHNOLOGIST PROVIDED HISTORY: What is the sedation requirement?->None What reading provider will be dictating this exam?->CRC FINDINGS: ROTATOR CUFF: There is minimal partial-thickness tearing and tendinosisof the interstitial and bursal fibers of the infraspinatus contribution tothe conjoined tendon. The supraspinatus, subscapularis and teres minor are intact. There is normal muscular volume and signal BICEPS TENDON: Intact vertical and horizontal portions of the long headof the biceps tendon. LABRUM: The glenoid labrum is intact to the extent that it is visualized.No paralabral cyst. GLENOHUMERAL JOINT: Physiologic amount of joint fluid. No evidence of high-grade cartilage loss. Normal alignment. AC JOINT AND ACROMIOCLAVICULAR ARCH: No significant acromial downslopingor subacromial spur. No significant degenerative changes. Intact acromioclavicular and coracoclavicular ligaments. Minimal subacromial/subdeltoid bursitis. BONE MARROW: No evidence of fracture. Normal marrow signal. OUTLET SPACES: Normal MRI appearance of the quadrilateral space. No significant narrowing of the supraspinatus outlet. IMPRESSION: Tendinosis and minimal partial-thickness tearing of the interstitial and bursal surface fibers of the distal infraspinatus tendon. Mildassociated subacromial bursitis Shaikh Acacia [facility] [place] MRI ORDERABLES Final Result documented in this encounter Visit Diagnoses Diagnosis Pain of left shoulder joint on movement- Primary Pain of left shoulder joint on movement documented in this encounter Care Teams Academic Guidance Specialist Relationship Specialty Start Date End Date Shaikh Roger MD PCP - General 12/12/22 documented as of this encounter
--- OUTSIDE RECORDS SUMMARY | 2025-05-14 13:03 | XMS_ITS | Clinical Summary ---
Author Organization [facility] Address [address] [place] [address] Care Team Providers Care Heddler Tier Name Role Phone Clement Cooper MD Primary Care Provider [phone] Tanja Haskins CIVIL STRUCTURAL DESIGNER Unavailable [phone] Td Matos CIVIL STRUCTURAL DESIGNER Unavailable [phone] Allergies Active Allergy Reactions Criticality Noted Date Comments Albuterol Itching,Rash Low 06/28/2022 Penicillins Anaphylaxis High 06/28/2022 Medications butalbital-acetam inophen-caffeine (Fioricet) 50-300-40 MG capsule TAKE 1 CAPSULE BY MOUTH 2 - 3 TIMES A DAY NEEDED FOR HEADACHE 3 Active loratadine (Claritin) 10 MG tablet Take 10 mg by mouth Daily 3 Active estrogens, conjugated, (Premarin) 0.45 MG tabletIndications :Hot flushes, perimenopausal,Ni ght sweats,Hx of hysterectomy for benign disease,H/O unilateral oophorectomy Take 1 tablet (0.45 mg) by mouth Daily Take daily for 21 days, then do not take for 7 days. 90 tablet 3 4 Active Active Problems Problem Noted Date Diagnosed Date Left shoulder pain 04/24/2023 Status post left rotator cuff repair 04/24/2023 Family History Medical History Relation Name Comments Cancer Father HTN Father Stroke Father HTN Mother Stroke Mother Relation Name Status Comments Father Mother Alive Social History Tobacco Use Types Packs/Day Years Used Date Smoking Tobacco: Never Smokeless Tobacco: Never Tobacco Cessation:Counseling Given: Not Answered Alcohol Use Standard Drinks/Week Comments Yes 0 (1 standard drink = 0.6 oz pur e alcohol) 1-2 DRINKS/WK Comments No Sex and Gender Information Value Date Recorded Sex Assigned at Female 01/24/2023 1:27 PM EDT Legal Sex Female 1:24 PM EDT Gender Identity Female 01/24/2023 1:27 PM EDT Sexual Orientation Not on file Last Filed Vital Signs Vital Sign Reading Time Taken Comments Blood Pressure 118/74 03/06/2024 10:26 AM EDT Pulse - - Temperature - - Respiratory Rate - - Oxygen Saturation - - Inhaled Oxygen Concentration - - Weight 64.4 kg (142 lb) 03/06/2024 10:26 AM EDT Height 162.6 cm (5' 4 ) 03/24/2023 9:59 AM EDT Body Mass Index 24.37 03/24/2023 9:59 AM EDT Plan of Treatment Health Maintenance Due Date Last Done Comments CT Colonography 1972 Colonoscopy 1972 FIT 1972 FOBT 1970 Sigmoidoscopy 1972 Colorectal Cancer Screening 11/24/2024 FIT-DNA 11/24/2024 11/24/2021 Mammogram 02/08/2025 02/09/2024 Influenza Vaccine (#1) 2025 Procedures Procedure Name Priority Date/Time Associated Diagnosis Comments MM TOMOSYNTHESIS SCREENING BI 02/09/2024 12:54 PM EDT from Last 3 Months or Most Recently Relevant to Health Maintenance Results * MM TOMOSYNTHESIS SCREENING BI (02/09/2024 12:54 PM EDT) Anatomical Region Laterality Modality Other 02/09/2024 12:5 4 PM EDT Narrative 02/09/2024 12:55 PM EDT The [address] [address] Mammography Report Signed Patient: RAINE ASENCIO MR#: [id number] : 1970 Acct:[id number] Age/Sex: 53 / F ADM Date: 02/09/24 Loc: MAMMO Attending Dr: Shaikh Acacia Bae Ordering Physician: Shaikh Catalino Roger Results: Date of Service: 02/09/24 Follow Up: Procedure(s): MM tomosynthesis screening BI Accession Number(s): [id number] cc: Shaikh Catalino Roger Patient Name: RAINE ASENCIO MR#: [id number] : 1970 Exam Date: 02/09/2024 Ordering Doctor: [...] lung cancer at age 62. LOCATION: [facility] BREAST COMPOSITION: The breasts are extremely dense, [...] Signed By: 02/09/24 1255 DD/ 1254 TD/TT: Batch Maker: Procedure Note Radiology, Radiologist, - 02/09/[address] [place] [address] Mammography Report Signed Patient: RAINE ASENCIO LMR#: [id number] : 1970Acct:[id number] Age/Sex: 53 / FADM Date: 02/09/24 Loc: MAMMO Attending Dr: Shaikh Acacia Bae Ordering Physician: Shaikh Catalino RogerResults: Date of Service: 02/09/24Follow Up: Procedure(s): MM tomosynthesis screening BI Accession Number(s): [id number] cc: Shaikh Catalino Roger Patient Name: RAINE ASENCIO MR#: [id number] : 1970 Exam Date: 02/09/2024 Ordering Doctor: [...] lung cancer at age 62. LOCATION: [facility] BREAST COMPOSITION: The breasts are extremely dense, [...] M.D. Signed By:02/09/24 1255 DD/ 1254 TD/TT: Batch Maker: us Shaikh Acacia [facility] Final Result from Last 3 Months or Most Recently Relevant to Health Maintenance Care Teams Heddler Tier Relationship Specialty Start Date End Date Clement Cooper MD PCP - General Family Medicine 02/28/24 Td Matos NP [address] [place] [address] PCP - [facility] 03/31/25 Tanja Haskins NP Nurse Practitioner Family Medicine 02/28/24
--- OUTSIDE RECORDS SUMMARY | 2025-05-14 13:10 | XMS_ITS | CCD ---
Author Organization [facility] Care Team Providers Care Website Optimization Strategist Name Role Phone SKYLER Mike Attending Provider [...] Unavailable ZHANNA GRAJEDA Attending Unavailable WARNER MORALES MD, Marcia E Primary Care Provider Netta Kelley MD Attending Provider Allergies Allergy Classification Reported Allergen(s) Allergy Type Date of Onset Reaction(s) Facility (4 sources) Albuterol Drug Allergy 4 Unknown, [facility] (1 source) Penicillin V Drug Allergy Unknown [employer] Other (1 source) Albuterol Drug Allergy 2 [facility] Repository (3 sources) Penicillins Allergy to substance 4 [facility] Medications Current Medications Medication Drug Class(es) Dates Sig (Normalized) Sig (Original) acetaminophen 300 mg / butalbital 50 mg / caffeine 40 mg oral capsule (2 sources) Barbiturate, Central Nervous System Stimulant, Methylxanthine Start: 04-08-2025 End: 04-08-2025 take 1 capsule by mouth every eight hours as needed for pain Butalbital-Acetam inophen-Caff (Fioricet) 50-300-40 mg capsule Active 1 CAP PO Every 8 hours as needed for pain April 08, 2025 10:53am Complies with drug therapy 120 actuat fluticasone propionate 0.22 mg/actuat metered dose inhaler (9 sources) Corticosteroid Start: 10-22-2024 take 1 puff(s) by inhalation twice daily Fluticasone Propionate (Flovent Hfa) 220 mcg/actuation HFA aerosol inhaler Active 1 PUFF INHALATION Twice daily October 22, 2024 12:00am Complies with drug therapy Start: 02-28-2024 End: 02-29-2024 take 1 spray(s) nasal route once daily Fluticasone Propionate (Flonase Allergy Relief) 50 mcg/actuation spray,suspension Active 1 SPRAY INTRANASAL Daily February 28, 2024 12:00am administer into each nostril Complies with drug therapy Fluticasone Prop ionate Active Flonase Active Fluticasone Propionate (Flovent Hfa) 220 mcg/actuation HFA aerosol inhaler (1 source) Start: 10-22-2024 take 1 puff(s) by inhalation twice daily Fluticasone Propionate (Flovent Hfa) 220 mcg/actuation HFA aerosol inhaler Active 1 PUFF INHALATION Twice daily October 22, 2024 12:00am 200 actuat ipratropium bromide 0.017 mg/actuat metered dose inhaler (2 sources) Anticholinergic Start: 10-22-2024 take 1 puff(s) by inhalation every eight hours Ipratropium Premier (Atrovent Hfa) 17 mcg/actuation HFA aerosol inhaler Active 2 PUFF INHALATION Every 8 hours October 22, 2024 12:00am Complies with drug therapy loratadine 10 mg oral tablet (4 sources) Start: 02-28-2024 take 1 tablet by mouth once daily Loratadine (Claritin) 10 mg tablet Active 10 MG PO Daily February 28, 2024 12:00am Complies with drug therapy Claritin Active Completed/Discontinued Medications Medication Drug Class(es) Dates Sig (Normalized) Sig (Original) sulfamethoxazole 800 mg / trimethoprim 160 mg oral tablet (2 sources) Dihydrofolate Reductase Inhibitor Antibacterial, Sulfonamide Antimicrobial Start: 10-22-2024 End: 04-08-2025 take 1 tablet by mouth twice daily Sulfamethoxazole- Trimethoprim 800-160 mg tablet Discontinued 1 TAB PO Twice daily October 22, 2024 12:00am April 08, 2025 10:19am Toradol 30 mg/ml (1 source) Start: 06-27-2022 Toradol 30 mg/ml May, 60 mg Problems Problem Classification Problem Date Documented Date Episodic/Chronic Abdominal pain (1 source) Right lower quadrant pain Episodic Asthma (4 sources) Exercise induced bronchospasm; Translations: [EXERCISE INDUCED BRONCHOSPASM] Onset: 12-09-2021 Chronic Genitourinary symptoms and ill-defined conditions (3 sources) Dysuria; Translations: [Dysuria] Onset: 06-27-2022 Episodic Headache; including migraine (2 sources) Migraine; Translations: [Migraine, unspecified, not intractable, without status migrainosus] 04-08-2025 Chronic Menopausal disorders (4 sources) Disorder associated with menstruation AND/OR menopause; Translations: [Unspecified menopausal and perimenopausal disorder] 02-29-2024 Chronic Other non-traumatic joint disorders (5 sources) Pain in left shoulder; Translations: [PAIN IN LEFT SHOULDER] Onset: 12-05-2022 Episodic Other screening for suspected conditions (not mental disorders or infectious disease) (8 sources) Encounter for screening mammogram for malignant neoplasm of breast; Translations: [Patient encounter status] Onset: 12-02-2022 Episodic Other upper respiratory infections (1 source) Acute maxillary sinusitis; Translations: [Acute maxillary sinusitis, unspecified] 10-22-2024 Episodic Residual codes; unclassified (1 source) Family [...] : SHAIKH Mahi DELGADILLO . Admission #: [id number] Family : Order #: [id number] CLICK HERE TO VIEW EXAM RADIOLOGY REPORT [...] lung cancer at age 62. LOCATION: [facility] BREAST COMPOSITION: Extremely dense, which lowers [...] Dowd M.D. on 12/05/2022 at 11:56 Normal [facility] Urinalysis - AUTOMATEDon Appearance (U) clear [email or web address] Other Bilirubin Ql (U) Negative [employer] Other Color (U) yellow [employer] Other Glucose Ql (U) Negative [email or web address] Other Hemoglobin Ql (U) Negative [place] Other Ketones Ql (U) Negative [email or web address] Other Leukocyte esterase Test strip Ql (U) Negative [employer] Other Nitrite Ql (U) Negative [email or web address] Other pH (U) 6.0 [pH] [employer] Other Protein Ql (U) Negative [email or web address] Other Specific gravity (U) [Rel density] 1.010 [employer] Other Urobilinogen (U) [Mass/Vol] 0.2 mg/dL [employer] Other Urinalysis - AUTOMATED [employer] Other Urine Cultureon 06-27-2022 Bacteria identified Cx Nom (U) Reason for Exam Dysuria Urine No Growth 2 Days PERFORMED BY: [address] [id number] PATHOLOGIST MOTION DESIGNER GRACE FRIEDMAN M.D. Normal [facility] Comment on above: Performed By: #### C UU #### [place] [id number] [facility] Vital Signs Date Time Vital Sign Value Performing Clinician Facility 04-08-2025 10:16-0400 Body height 163.83 cm Netta Kelley MD Work Phone: [facility] 04-08-2025 10:16-0400 Body mass index (BMI) [Ratio] 24.6 kg/m2 Netta Kelley MD Work Phone: [facility] 04-08-2025 10:16-0400 Body weight 66.22 kg Netta Kelley MD Work Phone: [facility] 04-08-2025 10:16-0400 Diastolic blood pressure 71 mm[Hg] Netta Kelley MD Work Phone: [facility] 04-08-2025 10:16-0400 Heart rate 73 /min Netta Kelley MD Work Phone: [facility] 04-08-2025 10:16-0400 Systolic blood pressure 137 mm[Hg] Netta Kelley MD Work Phone: [facility] 10-22-2024 09:48-0400 Body height 163.83 cm [facility] 10-22-2024 09:48-0400 Body mass index (BMI) [Ratio] 24.5 kg/m2 [facility] 10-22-2024 09:48-0400 Body temperature 98.3 [degF] [facility] 10-22-2024 09:48-0400 Body weight 65.77 kg [facility] 10-22-2024 09:48-0400 Diastolic blood pressure 73 mm[Hg] [facility] 10-22-2024 09:48-0400 Heart rate 79 /min [facility] 10-22-2024 09:48-0400 Systolic blood pressure 119 mm[Hg] [facility] 02-29-2024 08:31-0400 Body height 163.83 cm [facility] 02-29-2024 08:31-0400 Body mass index (BMI) [Ratio] 24.1 kg/m2 [facility] 08-01-2024 08:31-0400 Body weight 64.86 kg [facility] 02-29-2024 08:31-0400 Diastolic blood pressure 75 mm[Hg] [facility] 02-29-2024 08:31-0400 Heart rate 66 /min [facility] 02-29-2024 08:31-0400 Systolic blood pressure 115 mm[Hg] [facility] 06-27-2022 10:15-0500 Body height 162.56 cm Denise Cee Other [employer] Other 06-27-2022 10:15-0500 Body mass index (BMI) [Ratio] 23.17 kg/m2 Denise Cee Other [employer] Other 06-27-2022 10:15-0500 Body temperature 97.8 [degF] Denise Mike Other [employer] Other 06-27-2022 10:15-0500 Body weight 61.24 kg Denise Cee Other [employer] Other 06-27-2022 10:15-0500 Diastolic blood pressure 61 mm[Hg] Denise Cee Other [employer] Other 06-27-2022 10:15-0500 Respiratory rate 18 /min Denise Mike Other [employer] Other 06-27-2022 10:15-0500 SaO2% (BldA) [Mass fraction] 98 % Denise Mike Other [employer] Other 06-27-2022 10:15-0500 Systolic blood pressure 112 mm[Hg] Denise Mike Other [employer] Other Encounters Encounter Date Encounter Type Care Provider Facility Start: 04-08-2025 End: 04-08-2025 ambulatory Netta Kelley MD Work Phone: [facility] Work Phone: Start: 04-08-2025 End: 04-08-2025 Patient encounter procedure Netta Kelley MD -[facility] Work Phone: Start: 10-22-2024 End: 10-22-2024 ambulatory [facility] Work Phone: Start: 10-22-2024 End: 10-22-2024 [facility] Work Phone: Start: 03-06-2024 End: 03-06-2024 ambulatory CAR Harjeet FARRIS Not Available Start: 02-29-2024 Patient encounter status [facility] Start: 02-29-2024 End: 02-29-2024 ambulatory [facility] Work Phone: Start: 02-29-2024 End: 02-29-2024 Patient encounter procedure [facility] Work Phone: Start: 10-03-2023 End: 10-03-2023 ambulatory WARNER MORALES Not Available Start: 08-28-2023 End: 08-28-2023 ambulatory MICAH CONN Not Available Start: 2023 End: 2023 ambulatory ZHANNA GRAJEDA Not Available Start: 08-15-2023 End: 08-15-2023 ambulatory KRUPA BATISTA Not Available Start: 08-08-2023 End: 08-08-2023 ambulatory KRUPA COLINY Not Available Start: 08-02-2023 End: 08-02-2023 ambulatory WARNER MORALES Not Available Start: 08-01-2023 End: 08-01-2023 ambulatory DEMARCO SOOD Not Available Start: 07-17-2023 End: 07-17-2023 ambulatory ZHANNA NICCI Not Available Start: 07-10-2023 End: 07-10-2023 ambulatory SAMANTHA JUSTIN Not Available Start: 07-03-2023 End: 07-03-2023 ambulatory SAMANTHA JUSTIN Not Available Start: 06-26-2023 End: 06-26-2023 ambulatory SAMANTHA JUSTIN Not Available Start: 06-26-2023 End: 06-26-2023 ambulatory WARNER MORALES Not Available Start: 06-15-2023 End: 06-15-2023 ambulatory ZHANNA GRAJEDA Not Available Start: 12-14-2022 ambulatory SHAIKH Luis ACACIA Facilit y:H1 Start: 12-05-2022 ambulatory SHAIKH Luis ACACIA Facilit y:[facility]1 Start: 12-02-2022 End: 12-03-[address] IZAIAH DOWD Facility:[facility]1 Start: 06-27-2022 Office outpatient ne w 20 minutes Denise Mike [facility] Start: 06-27-2022 End: 06-27-2022 ambulatory Denise Mike Facility:[facility] Start: 06-27-2022 End: 06-27-2022 ambulatory LADLE FILLER-C Denise Mike Work Phone: [facility] Work Phone: Start: 06-27-2022 End: 06-27-2022 Departed Referred LADLE FILLER-C Denise Mike Work Phone: [facility] [place] Start: 12-09-2021 End: 12-10-2021 ambulatory SHAIKH Luis DELGADILLO Facility:[facility]1 Plan of Treatment Date Care Activity Detail Author Start: 02-29-2024 Patient referral [facility] Work Phone: Bacteria identified in Urine by Culture [facility] Comprehensive metabo lic 2000 panel - Serum or Plasma [facility] Patient referral [facility] Work Phone: [facility] Payers Date Payer Category Payer Self-pay 1972 Unknown [id number] 1972 Unknown [id number] 1972 Unknown [id number] [id number] 1972 Unknown [id number] 2.16.840.1.582002.3.579.2.593 1972 Unknown [id number] 2.16.840.1.611511.3.579.2.125 9 1972 Unknown [id number] 2.16.840.1.748512.3.579.2.125 9 1972 Unknown [id number] 2.16.840.1.649090.3.579.2.125 9 1972 Unknown [id number] 2.16.840.1.610640.3.579.2.125 9 1972 Unknown [id number] 2.16.840.1.593497.3.579.2.125 9 1972 Unknown [id number] 2.16.840.1.892446.3.579.2.125 9 1972 Unknown [id number] 2.16.840.1.854471.3.579.2.125 1972 Unknown [id number] 2.16.840.1.132446.3.579.2.125 9 1972 Unknown [id number] 2.16.840.1.918912.3.579.2.125 9 1972 Unknown [id number] 2.16.840.1.483764.3.579.2.125 9 1972 Unknown [id number] 2.16.840.1.247598.3.579.2.125 9 1972 Unknown [id number] 2.16.840.1.256728.3.579.2.125 1972 Unknown [id number] 2.16.840.1.404185.3.579.2.125 1972 Unknown [id number] 2.16.840.1.373733.3.579.2.125 9 1959 [facility] [id number] [id number] Private Health Insurance [facility] [id number] Unknown [id number] 2.16.840.1.219495.3.579.2.531 Unknown [place] [employer] [id number] Unknown [place] [employer] [id number] Social History Date Type Detail Facility Tobacco smoking status NHIS Unknown if ever smoked [facility] Work Phone: Start: 1970 Sex Assigned At Female [facility] Sex Assigned At Sex Assigned At [employer] Other Tobacco smoking status NHIS Unknown if ever smoked [facility] Work Phone: Start: 10-22-2024 Sex Female (finding) [facility] NEGATED: Highlighted row [facility] Clinical Note 12-02-2022 Note Date & [...] authenticated by: IZAIAH DOWD Date: 2022-12-02 11:05 [facility] Evaluation note 06-27-2022 Note Date & Type Note Facility 06-27-2022 Evaluation note Encounter Date Diagnosis Assessment Notes May, Dysuria (ICD-10 - R30.0) Sending urine out for culture will call with results May, RLQ abdominal pain (ICD-10 - R10.31) Recommend patient contact juice standardizer for follow up due to concerns and history of ovarian cysts. [employer] Other Evaluation note Note Date & Type Note Facility Evaluation note No assessment information availa ble [facility] Work Phone: Evaluation note Note Date & Type Note Facility Evaluation note Diagnosis Onset Date Menopausal and perimenopausal disorder acute Screening for colon cancer a cute [facility] Work Phone: Evaluation note Note Date & Type Note Facility Evaluation note Diagnosis Onset Date Resolution Migraines acute April 08, 2025 10:13am [facility] Work Phone: History general Narrative - Reported Note Date & Type Note Facility History general Narrative - Reported Type Medical History degenerative disc Surgical History hysterectomy Surgical History left shoulder Surgical History hemorrhoidectomy x2 Surgical History Surgical History tonsillectomy Hospitalization History see above [employer] Other Hospital Discharge instructions Note Date & Type Note Facility Hospital Discharge instructions Ambulatory OrdersReferral to MACHINE [facility] Time Frame: 02/29/24, Location: None Selected [facility] Work Phone: Reason for referral (narrative) Note Date & Type Note Facility Reason for referral (narrative) No reason for referral information available [facility] Work Phone: Chief Complaint and Reason for Visit Chief Complaint Dysuria Chief Complaint new patient establis h care Reason for Visit Menopausal and perim enopausal disorder Screening for colon cancer Chief Complaint Admit Date sinus infection October 22, 2024 9:4 5am Chief Complaint Admit Date Headaches April 08, 2025 10:13am Reason for Visit Admit Date Migraines April 08, 2025 10:13am Summary Purpose Family History Relationship Condition Age [...] October 22, 2024 End: October 22, 2024 Team Status: Inactive Member Role Status Dates Netta Kelley MD Primary Care Provider Active Start: April 08, 2025 End: April 08, 2025 Netta Kelley MD Attending Provider Active St art: April 08, 2025 End: April 08, 2025 Goals (unrecognized section and content) Goals may be documented in a n alternate sectionNo InformationGoals may be documented in an alternate sectionGoals may be documented in an alternate sectionGoals may be documented in an alternate section REASON FOR VISIT (unrecogniz ed section and content) DYSURIA INFORMATION SOURCE (unrecogn ized section and content) DATE CREATED AUTHOR 06/29/2022 [facility] DATE CREATED AUTHOR AUTHOR'S ORGANIZ ATION 12/08/2022 [facility] DATE CREATED AUTHOR AUTHOR'S ORGANIZ ATION 03/08/2024 [facility] dical Specialists [facility] FOR RECORDS PERTAINING TO PATIENTS WHO [...] BE BASED ON THE PRIMARY CLINICAL RECORDS. [facility] [employer] [facility]. provides no warranty or guarantee of the accuracy or completeness of information in this document.
--- OUTSIDE RECORDS SUMMARY | 2025-05-14 20:12 | XMS_ITS | Continuity of Care Document ---
Author Organization [facility] Address [address] [place] [address] Phone Care Team Providers Care Eeler Name Role Phone Netta Kelley MD Primary Care Provider Netta Kelley MD Attending Provider Care Teams Patient Care Team Team Status: Active Member Role Status Dates Netta Kelley MD Primary Care Provider Active Visit Care Team Team Status: Inactive Member Role Status Dates Netta Kelley MD Primary Care Provider Active Start: April 08, 2025 End: April 08, 2025 Netta Kelley MD Attending Provider Active St art: April 08, 2025 End: April 08, 2025 Visit Care Team Team Status: Inactive Member Role Status Dates Netta Kelley MD Primary Care Provider Active Start: May 14, 2025 End: May 14, 2025 Netta Kelley MD Attending Provider Active St art: May 14, 2025 End: May 14, 2025 Visit Care Team Team Status: Inactive Member Role Status Dates Netta Kelley MD Primary Care Provider Active Start: May 14, 2025 End: May 14, 2025 Netta Kelley MD Attending Provider Active St art: May 14, 2025 End: May 14, 2025 Chief Complaint and Reason [...] Stop Date End Date Instructions Adherence Ipratropium Senatobia (Atrovent Hfa) 17 mcg/actuati on HFA aerosol inhaler Active 2 PUFF INHALA TION Every 8 hours October 22, 2024 12:00a m Unknown Fluticasone Propionate (Flovent Hfa) 220 mcg/actuati on HFA aerosol inhaler Active 1 PUFF INHALA TION Twice daily October 22, 2024 12:00a m Unknown Sulfamethox azole-Trime thoprim 800-160 mg tablet Discont inued 1 TAB PO Twice daily October 22, 2024 12:00a m [facility] 2024 10:19 am Butalbital- Acetaminoph en-Caff (Fioricet) 50-300-40 mg capsule Discont inued 1 CAP PO Every 8 hours as needed 2024 12:00a m [facility] 2024 10:55 am Butalbital- Acetaminoph en-Caff [...] 025 11:24am Weight 67.35 kg May 14, 2 025 11:24am Heart Rate 60 /min 60-100 May 14, 2 025 11:29am BP Systolic 153 mm[Hg] 100-140 May 14, 2 025 11:29am BP Diastolic 78 mm[Hg] 60-100 May 14, 2 025 11:29am BMI (Body Mass Index) 25.0 kg/m2 Octobe r 2024 11:24am Advance Directives Advance Directive Response Recorded Date/ Time Advance Directives No March 11:10am Insurance Providers Guarantor Raine Dockery Address [address] [place] [phone] Contact Info. Home Phone: Payer Policy Id Subscriber's Name Subscriber Id Effective Date Expiration Date Sammy STEELE/ROD [id number] Raine Dockery [id number] CallmyName Claims [id number] Raine Dockery [id number] Encounters Encounter Location(s) Arrival/Admit Date Discharge/Depart Date Provider(s) Departed Physician/Prov ider Office Visit -[facility] April 08, 2025 10:13am April 08, 2025 10:55am Netta Kelley MD Departed Physician/Prov ider Office Visit -[facility] May 14, 2025 10:54am May 14, 2025 12:18pm Netta Kelley MD Departed Clinical -EKG [facility] May 14, 2025 12:10pm May 14, 2025 12:11pm Netta Kelley MD Recent Diagnosis Onset Date Admit Date Migraines Unknown April 08, 025 10:13am Elevated blood pressure reading Unknown May 14, 2025 10:54am Fatigue Unknown May 14 10:54am Headache Unknown May 14 10:54am Assessments Diagnosis Onset Date Resolution Status Admit Date Migraines acute April 08, 2025 10:13am Elevated blood pressure reading acute May 14 10:54am Fatigue acute May 14, 2025 10:54am Headache acute May 14, 2025 10:54am Plan of Treatment Author Netta Kelley [facility] Authored April 14, 2025 1:03pm Pt states [...] Blood Count Auto Diff May 14 12:12pm Metanephrines, Frac, Pl, Free May 14, 2025 12:12pm MicroAlb Creat Ratio,U May 14, 2025 12:12p m Thyroid Stimulating Hormone May 14, 2025 1 2:12pm Future Medications Future medication information is unavailable Patient Instructions Patient instructions are unavailable
--- OUTSIDE RECORDS SUMMARY | 2025-05-16 07:58 | XMS_ITS | CCD ---
Author Organization [facility] Care Team Providers Care Chainstitch Seat Joiner Name Role Phone SKYLER Mike Attending Provider [...] Care Provider Netta Kelley MD Attending Provider [phone] Allergies Allergy Classification Reported Allergen(s) Allergy Type Date of Onset Reaction(s) Facility (6 sources) Albuterol Drug Allergy 4 Unknown, [facility] (1 source) Penicillin V Drug Allergy Unknown [facility] Other (1 source) Albuterol Drug Allergy 2 [facility] Repository (5 sources) Penicillins Allergy to substance 4 [facility] Medications Current Medications Medication Drug Class(es) Dates Sig (Normalized) Sig (Original) acetaminophen 300 mg / butalbital 50 mg / caffeine 40 mg oral capsule (6 sources) Barbiturate, Central Nervous System Stimulant, Methylxanthine Start: 04-08-2025 End: 04-08-2025 take 1 capsule by mouth every eight hours as needed for pain 120 actuat fluticasone propionate 0.22 mg/actuat metered dose inhaler (15 sources) Corticosteroid Start: 10-22-2024 take 1 puff(s) by inhalation twice daily Start: 02-28-2024 End: 02-29-2024 take 1 spray(s) nasal route once daily Fluticasone Prop ionate Active Flonase Active Fluticasone Propionate (Flovent Hfa) 220 mcg/actuation HFA aerosol inhaler (1 source) Start: 10-22-2024 take 1 puff(s) by inhalation twice daily Fluticasone Propionate (Flovent Hfa) 220 mcg/actuation HFA aerosol inhaler Active 1 PUFF INHALATION Twice daily October 22, 2024 12:00am 200 actuat ipratropium bromide 0.017 mg/actuat metered dose inhaler (4 sources) Anticholinergic Start: 10-22-2024 take 1 puff(s) by inhalation every eight hours loratadine 10 mg oral tablet (6 sources) Start: 02-28-2024 take 1 tablet by mouth once daily Claritin Active Completed/Discontinued Medications Medication Drug Class(es) Dates Sig (Normalized) Sig (Original) sulfamethoxazole 800 mg / trimethoprim 160 mg oral tablet (4 sources) Dihydrofolate Reductase Inhibitor Antibacterial, Sulfonamide Antimicrobial [...] [Dysuria] Onset: 06-27-2022 Episodic Headache; including migraine (6 sources) Migraine; Translations: [Migraine, unspecified, not intractable, without status migrainosus] 04-08-2025 Chronic Headache; including migraine (4 sources) Headache; Translations: [Headache] 05-14-2025 Episodic Malaise and fatigue (4 sources) Fatigue; Translations: [Other fatigue] 05-14-2025 Episodic Menopausal disorders (6 sources) Disorder associated with menstruation AND/OR menopause; Translations: [Unspecified menopausal and perimenopausal disorder] 02-29-2024 Chronic Other circulatory disease (4 sources) Elevated blood pressure; Translations: [Elevated blood-pressure reading, without diagnosis of hypertension] 05-14-2025 Episodic Other non-traumatic joint disorders (5 sources) Pain in left shoulder; Translations: [PAIN IN LEFT SHOULDER] Onset: 12-05-2022 Episodic Other screening for suspected conditions (not mental disorders or infectious disease) (10 sources) Encounter for screening mammogram for malignant neoplasm of breast; Translations: [Patient encounter status] Onset: 12-02-2022 Episodic Other upper respiratory infections (3 sources) Acute maxillary sinusitis; Translations: [Acute maxillary sinusitis, unspecified] 10-22-2024 Episodic Residual codes; unclassified (1 source) Family history of malignant neoplasm of breast; Translations: [FAMILY HX MALIG NEOPLASM OF BREAST] Onset: 12-08-2022 Episodic Residual codes; unclassified (1 source) Family history of malignant neoplasm of trachea, bronchus and lung; Translations: [FAM HX MALIG NEOPLSM TRACH BRON LNG] Onset: 12-08-2022 Episodic Spondylosis; intervertebral disc disorders; other back problems (2 sources) Neck pain; Translations: [Cervicalgia] 04-22-2025 Episodic Results Test Name Value Interpretation Reference Range Facil ity MG MAMM SCREEN 3D PAGE CADon 12-02-2022 MG MAMM SCREEN 3D PAGE CAD Patient: RAINE ASENCIO Exam Date: 12/02/2022 : 1970 Gender:F Ordering : SHAIKH Mahi DELGADILLO . Admission #: [id number] Family : Order #: [id number] CLICK HERE TO VIEW EXAM RADIOLOGY REPORT [...] lung cancer at age 62. LOCATION: [facility] BREAST COMPOSITION: Extremely dense, which lowers the [...] M.D. on 12/05/2022 at 11:56 Normal [facility] Urinalysis - AUTOMATEDon Appearance (U) clear [facility] Other Bilirubin Ql (U) Negative [facility] ast [facility] Other Color (U) yellow [facility] Other Glucose Ql (U) Negative [facility] Other Hemoglobin Ql (U) Negative [employer] oast [facility] Other Ketones Ql (U) Negative [facility] Other Leukocyte esterase Test strip Ql (U) Negative [facility] Other Nitrite Ql (U) Negative [facility] Other pH (U) 6.0 [pH] [facility] Other Protein Ql (U) Negative [facility] Other Specific gravity (U) [Rel density] 1.010 [facility] Other Urobilinogen (U) [Mass/Vol] 0.2 mg/dL [facility] Other Urinalysis - AUTOMATED [facility] Other Urine Cultureon 06-27-2022 Bacteria identified Cx Nom (U) Reason for Exam Dysuria Urine No Growth 2 Days PERFORMED BY: [place] [id number] PATHOLOGIST [facility] AGENT GRACE FRIEDMAN M.D. [facility] Comment on above: Performed By: #### C UU #### [address] Vital Signs Date Time Vital Sign Value Performing Clinician Facility 05-14-2025 11:29-0400 Diastolic blood pressure 78 mm[Hg] Netta Kelley MD Work Phone: [facility] 05-14-2025 11:29-0400 Heart rate 60 /min Netta Kelley MD Work Phone: [facility] 05-14-2025 11:29-0400 Systolic blood pressure 153 mm[Hg] Netta Kelley MD Work Phone: [facility] 05-14-2025 11:240400 Body height 163.83 cm Netta Kelley MD Work Phone: [facility] 05-14-2025 11:24-0400 Body mass index (BMI) [Ratio] 25 kg/m2 Netta Kelley MD Work Phone: [facility] 05-14-2025 11:24-0400 Body weight 67.35 kg Netta Kelley MD Work Phone: [facility] 04-08-2025 10:16-0400 Body height 163.83 cm Netta Kelley MD Work Phone: [facility] 04-08-2025 10:16-0400 Body mass index (BMI) [Ratio] 24.6 kg/m2 Netta Kelley MD Work Phone: [facility] 04-08-2025 10:16-0400 Body weight 66.22 kg Netta Kelley MD Work Phone: [facility] 04-08-2025 10:16-0400 Diastolic blood pressure 71 mm[Hg] Netta Kelley MD Work Phone: [facility] 04-08-2025 10:16-0400 Heart rate 73 /min Netta Kelley MD Work Phone: [facility] 04-08-2025 10:16-0400 Systolic blood pressure 137 mm[Hg] Netta Kelley MD Work Phone: [facility] 10-22-2024 09:48-0400 Body height 163.83 cm [facility] 10-22-2024 09:48-0400 Body mass index (BMI) [Ratio] 24.5 kg/m2 [facility] 10-22-2024 09:48-0400 Body temperature 98.3 [degF] [facility] 10-22-2024 09:48-0400 Body weight 65.77 kg [facility] 10-22-2024 09:48-0400 Diastolic blood pressure 73 mm[Hg] [facility] 10-22-2024 09:48-0400 Heart rate 79 /min [facility] 10-22-2024 09:48-0400 Systolic blood pressure 119 mm[Hg] [facility] 02-29-2024 08:31-0400 Body height 163.83 cm [facility] 02-29-2024 08:31-0400 Body mass index (BMI) [Ratio] 24.1 kg/m2 [facility] 02-29-2024 08:31-0400 Body weight 64.86 kg [facility] 02-29-2024 08:31-0400 Diastolic blood pressure 75 mm[Hg] [facility] 02-29-2024 08:31-0400 Heart rate 66 /min [facility] 02-29-2024 08:31-0400 Systolic blood pressure 115 mm[Hg] [facility] 06-27-2022 10:15-0500 Body height 162.56 cm Denise Mike Other [facility] Other 06-27-2022 10:15-0500 Body mass index (BMI) [Ratio] 23.17 kg/m2 Denise Mike Other [facility] Other 06-27-2022 10:15-0500 Body temperature 97.8 [degF] Denise Mike Other [facility] Other 06-27-2022 10:15-0500 Body weight 61.24 kg Denise Mike Other [facility] Other 06-27-2022 10:15-0500 Diastolic blood pressure 61 mm[Hg] Denise Mike Other [facility] Other 06-27-2022 10:15-0500 Respiratory rate 18 /min Denise Mike Other [facility] Other 06-27-2022 10:15-0500 SaO2% (BldA) [Mass fraction] 98 % Denise Mike Other [facility] Other 06-27-2022 10:15-0500 Systolic blood pressure 112 mm[Hg] Denise Mike Other [facility] Other Encounters Encounter Date Encounter Type Care Provider Facility Start: 05-14-2025 End: 05-14-2025 ambulatory Netta Kelley MD Work Phone: [facility] Work Phone: Start: 05-14-2025 End: 05-14-2025 Patient encounter procedure Netta Kelley MD -[facility] Start: 05-14-2025 End: 05-14-2025 ambulatory Netta Kelley MD Work Phone: [facility] Work Phone: Start: 05-14-2025 End: 05-14-2025 Patient encounter procedure Netta Kelley MD -[facility] Work Phone: Start: 04-08-2025 End: 04-08-2025 ambulatory Netta Kelley MD Work Phone: [facility] Work Phone: Start: 04-08-2025 End: 04-08-2025 Patient encounter procedure Netta Kelley MD -[facility] Work Phone: Start: 10-22-2024 End: 10-22-2024 ambulatory [facility] Work Phone: Start: 10-22-2024 End: 10-22-2024 Patient encounter procedure [facility] Physician [facility] Work Phone: Start: 03-06-2024 End: 03-06-2024 ambulatory CAR FARRIS Not Available Start: 02-29-2024 Patient encounter status [facility] Start: 02-29-2024 End: 02-29-2024 ambulatory [facility] Work Phone: Start: 02-29-2024 End: 02-29-2024 Patient encounter procedure [facility] Physician [facility] Work Phone: Start: 10-03-2023 End: 10-03-2023 ambulatory WARNER MORALES Not Available Start: 08-28-2023 End: 08-28-2023 ambulatory MICAH CONN Not Available Start: 2023 End: 2023 ambulatory ZHANNA GRAJEDA Not Available Start: 08-15-2023 End: 08-15-2023 ambulatory KRUPA LYNNE Not Available Start: 08-08-2023 End: 08-08-2023 ambulatory KRUPA LYNNE Not Available Start: 08-02-2023 End: 08-02-2023 ambulatory WARNER MORALES Not Available Start: 08-01-2023 End: 08-01-2023 ambulatory DEMARCO SOOD Not Available Start: 07-17-2023 End: 07-17-2023 ambulatory ZHANNA GRAJEDA Not Available Start: 07-10-2023 End: 07-10-2023 ambulatory SAMANTHA JUSTIN Not Available Start: 07-03-2023 End: 07-03-2023 ambulatory SAMANTHA BRRAMY Not Available Start: 06-26-2023 End: 06-26-2023 ambulatory SAMANTHA BRRAMY Not Available Start: 06-26-2023 End: 06-26-2023 ambulatory WARNER MORALES Not Available Start: 06-15-2023 End: 06-15-2023 ambulatory ZHANNA NICCI Not Available Start: 12-14-2022 ambulatory SHAIKH Luis Gonzalez y:H1 Start: 12-05-2022 ambulatory SHAIKH Luis DELGADILLO Facilit y:H1 Start: 12-02-2022 End: 12-03-[address] IZAIAH DOWD Facility:H1 Start: 06-27-2022 Office outpatient ne w 20 minutes Denise Mike [facility] Start: 06-27-2022 End: 06-27-2022 ambulatory Denise Mike Facility:[facility] Start: 06-27-2022 End: 06-27-2022 ambulatory MEDICAL DATA ANALYST-C Denise Mike Work Phone: [facility] Work Phone: Start: 06-27-2022 End: 06-27-2022 Departed Referred MEDICAL DATA ANALYST-C Denise Mike Work Phone: [facility] [place] Start: 12-09-2021 End: 12-10-2021 ambulatory SHAIKH Luis DELGADILLO Facility:H1 Plan of Treatment Date Care Activity Detail Author Start: 05-14-2025 [facility] Start: 02-29-2024 Patient referral [facility] Work Phone: Bacteria identified in Urine by Culture [facility] Catecholamines, frac tionation measurement, plasma [facility] Comprehensive metabo lic 1999 panel - Serum or Plasma [facility] metabo lic 1999 panel - Serum or Plasma [facility] Patient referral [facility] Work Phone: [facility] Payers Date Payer Category Payer Self-pay 1970 Unknown [id number] 1970 Unknown [id number] 2..[id number] 1972 Unknown [id number] 2..840.1.360108.3.579.2.593 1972 Unknown [id number] 2..840.1.482616.3.579.2.593 1972 Unknown [id number] 2.16.840.1.307760.3.579.2.125 9 1972 Unknown [id number] 2.16.840.1.898134.3.579.2.125 9 1972 Unknown [id number] 2.16.840.1.991901.3.579.2.125 9 1972 Unknown [id number] 2.16.840.1.219331.3.579.2.125 9 1972 Unknown [id number] 2.16.840.1.675475.3.579.2.125 9 1972 Unknown [id number] 2.16.840.1.548573.3.579.2.125 9 1972 Unknown [id number] 2.16.840.1.126967.3.579.2.125 9 1972 Unknown [id number] 2.16.840.1.940325.3.579.2.125 9 1972 Unknown [id number] 2.16.840.1.859581.3.579.2.125 9 1972 Unknown [id number] 2.16.840.1.891285.3.579.2.125 9 1972 Unknown [id number] 2.16.840.1.705188.3.579.2.125 9 1972 Unknown [id number] 2.16.840.1.091604.3.579.2.125 9 1972 Unknown [id number] 2.16.840.1.595725.3.579.2.125 1972 Unknown [id number] 2.16.840.1.003113.3.579.2.125 9 1959 Blue Cross Blue [facility] [id number] 2.16.840.1.132760.19 Private Health Insurance [facility] [id number] Unknown [id number] 2.16.840.1.874252.3.579.2.531 Unknown [place] [employer] [id number] Unknown [place] [id number] Social History Date Type Detail Facility Tobacco smoking status NHIS Unknown if ever smoked [facility] Work Phone: Start: 1970 Sex Assigned At Female [facility] Sex Assigned At Sex Assigned At [facility] Other Tobacco smoking status NHIS Unknown if ever smoked [facility] Work Phone: Start: 10-22-2024 Sex Female (finding) [facility] NEGATED: Highlighted row [facility] Evaluation note 04-08-2025 Note Date & Type Note Facility 04-08-2025 Evaluation note Diagnosis Onset Date Resolution Migraines acute April 08, 2025 10:13am Elevated blood pressure reading acute May 14, 2 025 10:54am Fatigue acute May 14, 2025 10:54am Headache acute May 14, 2025 10:54am [facility] Work Phone: Clinical Note 12-02-2022 Note Date & Type [...] authenticated by: IZAIAH DOWD Date: 2022-12-02 11:05 [facility] Evaluation note 06-27-2022 Note Date & Type Note Facility 06-27-2022 Evaluation note Encounter Date Diagnosis Assessment Notes May, Dysuria (ICD-10 - R30.0) Sending urine out for culture will call with results May, RLQ abdominal pain (ICD-10 - R10.31) Recommend patient contact bank note designer for follow up due to concerns and history of ovarian cysts. [facility] Other Evaluation note Note Date & Type Note Facility Evaluation note No assessment information availa ble [facility] Work Phone: Evaluation note Note Date & Type Note Facility Evaluation note Diagnosis Onset Date Menopausal and perimenopausal disorder acute Screening for colon cancer a reenae [facility] Work Phone: Evaluation note Note Date & Type Note Facility Evaluation note Diagnosis Onset Date Resolution Migraines acute April 08, 2025 10:13am [facility] Work Phone: History general Narrative - Reported Note Date & Type Note Facility History general Narrative - Reported Type Medical History degenerative disc Surgical History hysterectomy Surgical History left shoulder Surgical History hemorrhoidectomy x2 Surgical History Surgical History tonsillectomy Hospitalization History see above [facility] Other Hospital Discharge instructions Note Date & Type Note Facility Hospital Discharge instructions Ambulatory OrdersReferral to ABRASIVE WORKER Time Frame: 02/29/24, Location: None Selected [facility] Work Phone: Reason for referral (narrative) Note Date & Type Note Facility Reason for referral (narrative) No reason for referral information available [facility] Work Phone: Chief Complaint and Reason for Visit Chief Complaint Dysuria Chief Complaint new patient establis care Reason for Visit Menopausal and perim enopausal disorder Screening for colon cancer Chief Complaint Admit Date sinus infection October 22, 2024 9:4 5am Chief Complaint Admit Date Headaches April 08, 2025 10:13am Reason for Visit Admit Date Migraines April 08, 2025 10:13am Chief Complaint Admit Date Headaches April 08, 2025 10:13am BP Issues May 14, 2025 1 0:54am Reason for Visit Admit Date Migraines April 08, 2025 10:13am Elevated blood pressure reading May 14, 2025 10:54am Fatigue May 14, 2025 1 0:54am Headache May 14, 2025 1 0:54am Summary Purpose Family History Relationship Condition Age at Onset Recorded Date/T lucinda father Hypertension Unknown Unknown mother Hypertension Unknown History of stroke Unknown Advance Directives Advance Directive Response Recorded Date/ Time Advance Directives No May 7:50am Advance Directive Response Recorded Date/ Time Advance Directives No March 11:10am Additional Source Comments Care Teams (unrecognized sec [...] April 08, 2025 End: April 08, 2025 Team Status: Inactive Member Role Status Dates Netta Kelley MD Primary Care Provider Active Start: May 14, 2025 End: May 14, 2025 Netta Kelley MD Attending Provider Active St art: May 14, 2025 End: May 14, 2025 Team Status: Active Member Role Status Dates Netta Kelley MD Primary Care Provider Active Start: May 14, 2025 Netta Kelley MD Attending Provider Active St art: May 14, 2025 Goals (unrecognized section and content) Goals [...] section and content) DATE CREATED AUTHOR 06/29/2022 [facility] DATE CREATED AUTHOR AUTHOR'S ORGANIZ ATION 12/08/2022 [facility] DATE CREATED AUTHOR AUTHOR'S ORGANIZ ATION 03/08/2024 [facility] dicct Specialists [facility] FOR RECORDS PERTAINING TO PATIENTS WHO [...] BE BASED ON THE PRIMARY CLINICAL RECORDS. [email or web address] provides no warranty or guarantee of the accuracy or completeness of information in this document.
--- OUTSIDE RECORDS SUMMARY | 2025-05-16 07:59 | XMS_ITS | Encounter Summary ---
Author Organization [facility] Address [address] [place] [address] Care Team Providers Care Probe Operator Name Role Phone Shaikh BRANDON Roger Primary Care Provider Shaikh BRANDON Roger Primary Care Provider Clement Cooper MD Primary Care Provider Tanja Haskins DOCUMENTATION CLERK Unavailable [phone] Shaikh BRANDON Roger Unavailable [phone] Td Matos DOCUMENTATION CLERK Unavailable [phone] Encounter Details Date Type Department Care Team (Late st Contact Info) Description 07/27/2023 Abstract [facility] [address] [place] [address] Shaikh Roger MD [address] [place] [address] Social History Tobacco Use Types Packs/Day Years [...] on filedocumented in this encounter Care Teams Probe Operator Relationship Specialty Start Date End Date Shaikh Roger MD PCP - General Internal Medicine 01/02/23 09/27/23 Shaikh Roger MD PCP - General Internal Medicine 09/28/23 02/27/24 Clement Cooper MD PCP - General Family Medicine 02/28/24 Shaikh Roger MD [address] [place] [address] PCP - [facility] 10/29/24 Td Matos NP [address] [place] [address] PCP - [employer] 03/31/25 Tanja Haskins NP Nurse Practitioner Family Medicine 02/28/24 documented as of this encounter
--- OUTSIDE RECORDS SUMMARY | 2025-05-16 07:59 | XMS_ITS | Clinical Summary ---
Author Organization [facility] Address [address] [place] [address] Care Team Providers Care Emblem Fuser Tender Name Role Phone Clement Cooper MD Primary Care Provider [phone] Tanja Haskins MEDICAL OR SURGICAL INSTRUMENT MAKER Unavailable [phone] Td Matos MEDICAL OR SURGICAL INSTRUMENT MAKER Unavailable [phone] Allergies Active Allergy Reactions Criticality Noted [...] EDT Narrative 02/09/2024 12:55 PM EDT The [address] [address] Mammography Report Signed Patient: RAINE ASENCIO MR#: [id number] : 1970 Acct:[id number] Age/Sex: 53 / F ADM Date: 02/09/24 Loc: MAMMO Attending Dr: Shaikh Acacia Bae Ordering Physician: Shaikh Catalino Roger Results: Date of Service: 02/09/24 Follow Up: Procedure(s): MM tomosynthesis screening BI Accession Number(s): [id number] cc: Shaikh Catalino Roger Patient Name: RAINE ASENCIO MR#: [id number] : 1970 Exam Date: 02/09/2024 Ordering Doctor: [...] lung cancer at age 62. LOCATION: [facility] BREAST COMPOSITION: The breasts are extremely dense, [...] Signed By: 02/09/24 1255 DD/ 1254 TD/TT: Assistant Professor Of English: Procedure Note Radiology, Radiologist, - 02/09/2024 [place] [address] Mammography Report Signed Patient: RAINE ASENCIO LMR#: [id number] : 1970Acct:[id number] Age/Sex: 53 / FADM Date: 02/09/24 Loc: MAMMO Attending Dr: Shaikh Acacia Bae Ordering Physician: Shaikh Catalino RogerResults: Date of Service: 02/09/24Follow Up: Procedure(s): MM tomosynthesis screening BI Accession Number(s): [id number] cc: Shaikh Catalino Roger Patient Name: RAINE ASENCIO MR#: [id number] : 1970 Exam Date: 02/09/2024 Ordering Doctor: [...] lung cancer at age 62. LOCATION: [facility] BREAST COMPOSITION: The breasts are extremely dense, [...] M.D. Signed By:02/09/24 1255 DD/ 1254 TD/TT: Assistant Professor Of English: us Shaikh Acacia [facility] Final Result from Last 3 Months or Most Recently Relevant to Health Maintenance Care Teams Emblem Fuser Tender Relationship Specialty Start Date End Date Clement Cooper MD PCP - General Family Medicine 02/28/24 Td Matos NP [address] [place] [address] PCP - [facility] 03/31/25 Tanja Haskins NP Nurse Practitioner Family Medicine 02/28/24
--- OUTSIDE RECORDS SUMMARY | 2025-05-16 07:59 | XMS_ITS | Clinical Summary ---
Author Organization [facility] Address [id number] [address] [place] [address] Care Team Providers Care Trench Trimmer Fine Name Role Phone Shaikh BRANDON Roger Primary Care Provider [phone] Allergies Active Allergy Reactions Criticality Noted Date [...] Not on file Insurance [employer] Care Teams Trench Trimmer Fine Relationship Specialty Start Date End Date Shaikh Roger MD PCP - General Internal Medicine 06/28/22
--- OUTSIDE RECORDS SUMMARY | 2025-05-16 07:59 | XMS_ITS | Clinical Summary ---
Author Organization [facility] Address [address], [address] [place] [address] Care Team Providers Care Core Winding Operator Name Role Phone Shaikh BRANDON Roger Primary Care Provider [phone] Social History Tobacco Use Types Packs/Day Years [...] complete this topic Insurance BC Care Teams Core Winding Operator Relationship Specialty Start Date End Date Shaikh Roger MD PCP - General 12/12/22
--- OUTSIDE RECORDS SUMMARY | 2025-05-16 07:59 | XMS_ITS | Encounter Summary ---
Author Organization [facility] Address [address], [address] [place] [address] Care Team Providers Care Log Truck Driver Name Role Phone Shaikh BRANDON Roger Primary Care Provider [phone] Reason for Referral * Imaging (Routine) - Closed Specialty Diagnoses / Procedures Referred By Contac t Referred To Contact Radiology Diagnoses Pain of left shoulder joint on movement Procedures MRI SHOULDER LEFT WO CONTRAST Shaikh Roger MD Phone: tel: Referral ID Status Reason Start Date Expiration Date Visits Re quested Visits Authorized [id number] Closed 12/06/2022 01/04/2023 1 1 Encounter Details Date Type Department Care Team (Late st Contact Info) Description 12/09/2022 Transcribe Orders [place] [facility] [address] [place] [address] Shaikh Roger MD [address] [place] [address] Pain of left shoulder joint on movement [...] tendon. Mildassociated subacromial bursitis Shaikh Acacia [facility] [place] Final Result documented in this encounter Visit Diagnoses Diagnosis Pain of left shoulder joint on movement- Primary Pain of left shoulder joint on movement documented in this encounter Care Teams Log Truck Driver Relationship Specialty Start Date End Date Shaikh Roger MD PCP - General 12/12/22 documented as of this encounter
--- OUTSIDE RECORDS SUMMARY | 2025-05-16 07:59 | XMS_ITS | Encounter Summary ---
Author Organization [facility] Address [address] [place] [address] Care Team Providers Care Motorcycle Mechanic Apprentice Name Role Phone Shaikh BRANDON Roger Primary Care Provider Shaikh BRANDON Roger Primary Care Provider Clement Cooper MD Primary Care Provider [phone] Tanja Haskins CAP INSPECTOR Unavailable Shaikh BRANDON Roger Unavailable [phone] Td Matos CAP INSPECTOR Unavailable [phone] Encounter Details Date Type Department Care Team (Late st Contact Info) Description 06/30/2023 Abstract [facility] [address] [facility] [address] [place] [address] Art Sifuentes, PT Social History Tobacco Use [...] on filedocumented in this encounter Care Teams Motorcycle Mechanic Apprentice Relationship Specialty Start Date End Date Shaikh Roger MD PCP - General Internal Medicine 01/02/23 09/27/23 Shaikh Roger MD PCP - General Internal Medicine 09/28/23 02/27/24 Clement Cooper MD PCP - General Family Medicine 02/28/24 Shaikh Roger MD [address] [place] [address] PCP - [place] [employer] 10/29/24 Td Matos NP [address] [place] [address] PCP - [place] [employer] 03/31/25 Tanja Haskins NP Nurse Practitioner Family Medicine 02/28/24 documented as of this encounter
--- OUTSIDE RECORDS SUMMARY | 2025-05-16 07:59 | XMS_ITS | Encounter Summary ---
Author Organization [facility] Address [address] [place] [address] Care Team Providers Care Primary Clinician Name Role Phone Shaikh BRANDON Roger Primary Care Provider [phone] Clement Cooper MD Primary Care Provider [phone] Tanja Haskins PRODUCTION SUPPORT ANALYST Unavailable [phone] Shaikh BRANDON Roger Unavailable [phone] Td Matos PRODUCTION SUPPORT ANALYST Unavailable [phone] Encounter Details Date Type Department Care Team (Late st Contact Info) Description 02/09/2024 Clinisync Result Encounter [facility] Department Unsolicited Shaikh Roger MD [address] [place] [address] Social History Tobacco Use Types Packs/Day Years [...] EDT Narrative 02/09/2024 12:55 [place] [address] Mammography Report Signed Patient: RAINE ASENCIO MR#: [id number] : 1970 Acct:[id number] Age/Sex: 53 / F ADM Date: 02/09/24 Loc: MAMMO Attending Dr: Shaikh Acacia Bae Ordering Physician: Shaikh Catalino Roger Results: Date of Service: 02/09/24 Follow Up: Procedure(s): MM tomosynthesis screening BI Accession Number(s): [id number] cc: Shaikh Catalino Roger Patient Name: RAINE ASENCIO MR#: [id number] : 1970 Exam Date: 02/09/2024 Ordering Doctor: [...] lung cancer at age 62. LOCATION: [facility] BREAST COMPOSITION: The breasts are extremely [...] Signed By: 02/09/24 1255 DD/ 1254 TD/TT: Blend Technician: Procedure Note Radiology, Radiologist, MD - 02/09/2024 [facility] [place] [id number] Mammography Report Signed Patient: RAINE ASENCIO LMR#: [id number] : 1970Acct:[id number] Age/Sex: 53 / FADM Date: 02/09/24 Loc: MAMMO Attending Dr: Shaikh Acacia Bae Ordering Physician: Shaikh Catalino RogerResults: Date of Service: 02/09/24Follow Up: Procedure(s): MM tomosynthesis screening BI Accession Number(s): [id number] cc: Shaikh Catalino Roger Patient Name: RAINE ASENCIO MR#: [id number] : 1970 Exam Date: 02/09/2024 Ordering Doctor: Shaikh Mahi oRger . RADIOLOGY REPORT PROCEDURE: MM TOMOSYNTHESIS SCREENING [...] lung cancer at age 62. LOCATION: [facility] BREAST COMPOSITION: The breasts are extremely [...] M.D. Signed By:02/09/24 1255 DD/ 1254 TD/TT: Blend Technician: us Shaikh Acacia [facility] Final Result documented in this encounter Visit Diagnoses Not on filedocumented in this encounter Care Teams Primary Clinician Relationship Specialty Start Date End Date Shaikh Roger MD PCP - General Internal Medicine 09/28/23 02/27/24 Clement Cooper MD PCP - General Family Medicine 02/28/24 Shaikh Roger MD [address] [place] [address] PCP - [place] [employer] 10/29/24 Td Matos NP [address] [place] [address] PCP - [place] [employer] 03/31/25 Tanja Haskins NP Nurse Practitioner Family Medicine 02/28/24 documented as of this encounter
[2025-05-16 08:31] LABS: Hematocrit 37.5 % (36.0-48.0); Hemoglobin 12.5 g/dL (12.0-16.0); Immature Granulocytes Abs Auto 0.03 10^3/uL (0.00-0.03); Immature Granulocytes Pct Auto 0.4 % (0.0-0.5); Lymphocytes Absolute Auto 2.2 10^3/uL (1.2-3.8); Mean Corpuscular HGB Conc 33.3 g/dL (29.9-35.2); Mean Corpuscular Hemoglobin 30.9 pg (26.7-34.0); Mean Corpuscular Volume 92.6 fL (81.0-99.0); Platelet Count 383 10^3/uL (150-450); Red Blood Count 4.05 10^6/uL (4.20-5.40); White Blood Count 8.4 10^3/uL (4.0-11.0)
[2025-05-16 10:18] LABS: Alanine Aminotransferase 23 U/L (14-59); Albumin Globulin Ratio 1.3; Albumin Level 4.0 g/dL (3.4-5.0); Alkaline Phosphatase 93 U/L (46-116); Anion Gap 11.3; Aspartate Amino Transferase 9 U/L (15-37); Blood Urea Nitrogen 20.0 mg/dL (7.0-18.0); Calcium 9.1 mg/dL (8.5-10.1); Carbon Dioxide 30.0 mmol/L (21.0-32.0); Chloride 106 mmol/L (98-107); Estimated GFR (African America >60 (>=60 mL/min/1.73m^2); Estimated GFR (Non-African Ame >60 (>=60 mL/min/1.73m^2); Globulin 3.1 g/dL; Glucose 108 mg/dL (74-106); Potassium 4.3 mmol/L (3.5-5.1); Sodium 143 mmol/L (136-145); Thyroid Stimulating Hormone 2.167 uIU/mL (0.358-3.740); Total Protein 7.1 g/dL (6.4-8.2)
== END 2025-05-16 07:58 | disposition home or self-care (01) ==
LOC: LAB 07:57
PROVIDERS: PCP Family Medicine; Visit Provider Family Medicine
DX: R51.9 Headache, unspecified (principal); R03.0 Elevated blood-pressure reading, without diagnosis of hypertension; R53.83 Other fatigue
CPT/HCPCS: 36415; 80053; 82043; 82570; 83835; 84443; 85025